=== PATIENT | male | born 1965 | race African-American/Black ===

== ENCOUNTER → 2016-09-17 | Outpatient (CLI) | payer MEDICARE, MEDICAID ==
[~2016-09-17] MED LIST: ALL300T PO; BUPR5DIS TOP; CEPH500T PO; FLUT250M9 IH; HYDR25TA4 PO; LEVE100012 PO; LORA-205 PO; NITR0.4S31 SL; PLAVIX PO; POTA12PO2 PO; VERA240C2 PO
== END | disposition home or self-care (01) ==
LOC: Rad HDHVI 14:05
PROVIDERS: ATTEND Internal Medicine Cardiovascular Disease
DX: I11.0 Hypertensive heart disease with heart failure (principal); I50.9 Heart failure, unspecified; I25.10 Atherosclerotic heart disease of native coronary artery without angina pectoris
CPT/HCPCS: 71020

== ENCOUNTER → 2016-09-29 | Outpatient (CLI) | payer MEDICARE, MEDICAID ==
[~2016-09-29] MED LIST changes: +CYANOCOBALAMIN (B-12) 1000 MCG/1 ML VIAL IM ONE
[2016-09-29 10:50] VITALS: BP 131/89
[2016-09-29 12:06] VITALS: BP 124/84
[2016-09-29 16:29] LABS: Basophils # (auto) 0.1 uL; Basophils % (auto) 1.3 % (0.0-2.0); DEFINITIVE VIEW TRANSMISSION; Eosinophils # (auto) 0.2 uL; Eosinophils % (auto) 1.9 % (0.0-7.0); Hematocrit 48.9 % (41.0-53.0); Hemoglobin 14.1 g/dL (13.5-17.5); Lymphocytes # (auto) 3.2 uL; Lymphocytes % (auto) 37.9 % (10.0-50.0); Mean Corpuscular Hemoglobin 17.7 pg (28.0-32.0); Mean Corpuscular Hgb Conc. 28.9 g/dL (32.0-36.0); Mean Platelet Volume 9.2 fL (7.4-10.4); Monocytes % (auto) 11.3 % (0.0-12.0); Neutrophils # (auto) 4.1 uL; Neutrophils % (auto) 47.6 % (37.0-80.0); Platelet Count (auto) 339 10^3/uL (140-450); SUSPECT VIEW TRANSMISSION; White Blood Cell 8.6 10^3/uL (4.4-10.8)
[2016-09-29 16:55] LABS: Albumin 3.5 g/dL (3.4-5.0); BUN/Creatinine Ratio 19.1; Calcium 8.6 mg/dL (8.5-10.1); Potassium 3.5 mmol/L (3.5-5.1)
[2016-09-29 16:58] LABS: Bilirubin, Total 0.5 mg/dL (0.2-1.0); Total Protein 7.3 g/dL (6.4-8.2)
[2016-09-29 18:06] LABS: Red Cell Distribution Width 31.3 % (11.6-16.0)
[2016-09-29 18:31] LABS: Anisocytosis Marked; Giant Platelets Few; Hypochromia Marked; Microcytosis Marked; Platelet Estimate Adequate
== END | disposition home or self-care (01) ==
LOC: CHF HDHVI 10:54
PROVIDERS: ATTEND Internal Medicine Cardiovascular Disease
DX: I10 Essential (primary) hypertension (principal); D64.9 Anemia, unspecified
CPT/HCPCS: 36415; 80053; 82962; 83540; 83550; 85025; 85049; 96372; G0463

== ENCOUNTER → 2016-11-16 | Outpatient (CLI) | payer MEDICARE, MEDICAID ==
[~2016-11-16] MED LIST changes: +ALIR1INJ3 SC; +ASPI-231 PO; -CYANOCOBALAMIN (B-12) 1000 MCG/1 ML VIAL IM ONE; +DAPA1TAB2 PO
[2016-11-16 09:00] VITALS: BP 126/91
[2016-11-16 09:35] VITALS: BP 124/88
[2016-11-16 12:12] LABS: Basophils # (auto) 0.1 uL; Basophils % (auto) 0.7 % (0.0-2.0); DEFINITIVE VIEW TRANSMISSION; Eosinophils # (auto) 0.2 uL; Eosinophils % (auto) 2.1 % (0.0-7.0); Hematocrit 42.1 % (41.0-53.0); Hemoglobin 12.7 g/dL (13.5-17.5); Lymphocytes # (auto) 2.9 uL; Lymphocytes % (auto) 34.2 % (10.0-50.0); Mean Corpuscular Hemoglobin 18.3 pg (28.0-32.0); Mean Corpuscular Hgb Conc. 30.2 g/dL (32.0-36.0); Mean Corpuscular Volume 60.5 fL (80.0-100.0); Mean Platelet Volume 10.3 fL (7.4-10.4); Monocytes # (auto) 0.8 uL; Monocytes % (auto) 9.1 % (0.0-12.0); Neutrophils # (auto) 4.5 uL; Neutrophils % (auto) 53.9 % (37.0-80.0); Platelet Count (auto) 338 10^3/uL (140-450); SUSPECT VIEW TRANSMISSION; White Blood Cell 8.4 10^3/uL (4.4-10.8)
[2016-11-16 12:35] LABS: Red Cell Distribution Width 24.9 % (11.6-16.0)
[2016-11-16 12:58] LABS: INR 1.04 (0.9-1.15); Partial Thromboplastin Time 25.2 sec (22.64-33.71); Prothrombin Time 10.7 sec (9.37-12.3)
[2016-11-16 13:25] LABS: Platelet Estimate Adequate
[2016-11-16 13:26] LABS: Anisocytosis Marked; Hypochromia Marked; Microcytosis Marked
[2016-11-16 13:46] LABS: BUN/Creatinine Ratio 11.7; Calcium 8.6 mg/dL (8.5-10.1); Potassium 3.5 mmol/L (3.5-5.1)
== END | disposition home or self-care (01) ==
LOC: Rad HDHVI 08:51
PROVIDERS: ATTEND Internal Medicine Cardiovascular Disease
DX: I10 Essential (primary) hypertension (principal); D64.9 Anemia, unspecified; R79.1 Abnormal coagulation profile
CPT/HCPCS: 36415; 71020; 80048; 85025; 85610; 85730; 93005; G0463

== ENCOUNTER → 2016-11-18 | Day surgery (SDC) | payer MEDICARE, MEDICAID ==
[~2016-11-18] VITALS: Ht 182.9 cm; Wt 109.8 kg
[~2016-11-18] MED LIST changes: +LIDOCAINE 2%HCL (LOCAL ANESTH.) INJ 20ML MDV ONE; +MIDAZOLAM HCL 1MG/1ML-2 ML VIAL ONE; +VANCOMYCIN 1GM/250ML D5W 0 ML IV ONE; +VANCOMYCIN 1GM/250ML D5W 250 ML IV ONE; +VANCOMYCIN HCL 1000 MG VL IR ONE; +VANCOMYCIN HCL 1000 MG VL ONE; +ceFAZolin 1GM/50ML D5W 50 ML IV ONE; +fentaNYL CITRATE 100 MCG/2 ML VL ONE
== END | disposition home or self-care (01) ==
LOC: CATH 08:04
PROVIDERS: ATTEND Internal Medicine Cardiovascular Disease
DX: Z45.018 Encounter for adjustment and management of other part of cardiac pacemaker (principal); I20.9 Angina pectoris, unspecified; I50.9 Heart failure, unspecified; J44.9 Chronic obstructive pulmonary disease, unspecified; F41.9 Anxiety disorder, unspecified; F32.9 Major depressive disorder, single episode, unspecified; F10.99 Alcohol use, unspecified with unspecified alcohol-induced disorder; B19.10 Unspecified viral hepatitis B without hepatic coma
CPT/HCPCS: 33220; J0690; J2250; J3010; J7030

== ENCOUNTER → 2017-01-17 | Outpatient (CLI) | payer MEDICARE, MEDICAID ==
[~2017-01-17] MED LIST changes: +CYANOCOBALAMIN (B-12) 1000 MCG/1 ML VIAL IM ONE; +CYANOCOBALAMIN (B-12) 1000 MCG/1 ML VIAL ONE; -LIDOCAINE 2%HCL (LOCAL ANESTH.) INJ 20ML MDV ONE; -MIDAZOLAM HCL 1MG/1ML-2 ML VIAL ONE; -VANCOMYCIN 1GM/250ML D5W 0 ML IV ONE; -VANCOMYCIN 1GM/250ML D5W 250 ML IV ONE; -VANCOMYCIN HCL 1000 MG VL IR ONE; -VANCOMYCIN HCL 1000 MG VL ONE; -ceFAZolin 1GM/50ML D5W 50 ML IV ONE; -fentaNYL CITRATE 100 MCG/2 ML VL ONE
[2017-01-17 11:00] VITALS: BP 118/84
[2017-01-17 12:45] LABS: Basophils # (auto) 0.1 uL; Basophils % (auto) 0.5 % (0.0-2.0); DEFINITIVE VIEW TRANSMISSION; Eosinophils # (auto) 0.3 uL; Eosinophils % (auto) 2.9 % (0.0-7.0); Hematocrit 42.9 % (41.0-53.0); Lymphocytes % (auto) 29.8 % (10.0-50.0); Mean Corpuscular Hemoglobin 17.6 pg (28.0-32.0); Mean Corpuscular Hgb Conc. 30.3 g/dL (32.0-36.0); Mean Corpuscular Volume 58.3 fL (80.0-100.0); Mean Platelet Volume 10.2 fL (7.4-10.4); Monocytes # (auto) 0.9 uL; Monocytes % (auto) 8.8 % (0.0-12.0); Neutrophils # (auto) 5.9 uL; Platelet Count (auto) 373 10^3/uL (140-450); Red Cell Distribution Width 21.7 % (11.6-16.0); SUSPECT VIEW TRANSMISSION; White Blood Cell 10.1 10^3/uL (4.4-10.8)
[2017-01-17 13:20] LABS: BUN/Creatinine Ratio 11.4; Calcium 8.8 mg/dL (8.5-10.1); Magnesium 2.6 mg/dL (1.6-2.6); Potassium 3.7 mmol/L (3.5-5.1); Uric Acid 6.3 mg/dL (3.5-7.2)
== END | disposition home or self-care (01) ==
LOC: CHF HDHVI 09:50
PROVIDERS: ATTEND Internal Medicine Cardiovascular Disease
DX: I10 Essential (primary) hypertension (principal); E11.9 Type 2 diabetes mellitus without complications; E83.42 Hypomagnesemia; E55.9 Vitamin D deficiency, unspecified; D64.9 Anemia, unspecified; M10.9 Gout, unspecified
CPT/HCPCS: 36415; 80048; 82306; 83036; 83735; 84550; 85025; 94620; 96372; G0463

== ENCOUNTER → 2017-02-15 | Outpatient (CLI) | payer MEDICARE, MEDICAID ==
[2017-02-15 12:28] LABS: Basophils # (auto) 0 uL; Basophils % (auto) 0.5 % (0.0-2.0); DEFINITIVE VIEW TRANSMISSION; Eosinophils # (auto) 0.2 uL; Eosinophils % (auto) 2.3 % (0.0-7.0); Hematocrit 43.8 % (41.0-53.0); Hemoglobin 13.1 g/dL (13.5-17.5); Lymphocytes # (auto) 3.2 uL; Lymphocytes % (auto) 33.3 % (10.0-50.0); Mean Corpuscular Hemoglobin 17.4 pg (28.0-32.0); Mean Corpuscular Volume 58.1 fL (80.0-100.0); Mean Platelet Volume 10.3 fL (7.4-10.4); Monocytes # (auto) 0.9 uL; Neutrophils # (auto) 5.3 uL; Neutrophils % (auto) 54.9 % (37.0-80.0); Platelet Count (auto) 372 10^3/uL (140-450); White Blood Cell 9.7 10^3/uL (4.4-10.8)
[2017-02-15 13:07] LABS: Red Cell Distribution Width 23.1 % (11.6-16.0)
[2017-02-15 13:12] LABS: Potassium 3.6 mmol/L (3.5-5.1)
[2017-02-15 13:13] LABS: BUN/Creatinine Ratio 10.1; Calcium 8.7 mg/dL (8.5-10.1)
[2017-02-15 13:52] LABS: Platelet Estimate Adequate
[2017-02-15 13:56] LABS: Anisocytosis Moderate; Hypochromia Marked
[2017-02-15 13:57] LABS: Microcytosis Moderate
== END | disposition home or self-care (01) ==
LOC: Rad HDHVI 08:54
PROVIDERS: ATTEND Internal Medicine Cardiovascular Disease
DX: I10 Essential (primary) hypertension (principal); D64.9 Anemia, unspecified; D75.1 Secondary polycythemia
CPT/HCPCS: 36415; 80048; 83540; 83550; 85025; 93701; 96372; G0463

== ENCOUNTER → 2017-02-24 | Outpatient (CLI) | payer MEDICARE, MEDICAID ==
[~2017-02-24] MED LIST changes: -CYANOCOBALAMIN (B-12) 1000 MCG/1 ML VIAL IM ONE; -CYANOCOBALAMIN (B-12) 1000 MCG/1 ML VIAL ONE; +KETOROLAC TROMETH 60MG/2ML VIAL IM ONE
[2017-02-24 11:40] VITALS: BP 137/97
[2017-02-24 12:20] VITALS: BP 114/95
== END | disposition home or self-care (01) ==
LOC: CHF HDHVI 11:40
PROVIDERS: ATTEND Internal Medicine Cardiovascular Disease
DX: I27.2 Other secondary pulmonary hypertension (principal); D64.9 Anemia, unspecified; R52 Pain, unspecified
CPT/HCPCS: 96372; G0463; J1885

== ENCOUNTER → 2017-03-17 | Outpatient (CLI) | payer MEDICARE, MEDICAID ==
[~2017-03-17] MED LIST changes: +CYANOCOBALAMIN (B-12) 1000 MCG/1 ML VIAL IM ONE; +CYANOCOBALAMIN (B-12) 1000 MCG/1 ML VIAL ONE; -KETOROLAC TROMETH 60MG/2ML VIAL IM ONE
[2017-03-17 08:30] VITALS: BP 142/90
[2017-03-17 08:56] VITALS: BP 127/79
== END | disposition home or self-care (01) ==
LOC: CHF HDHVI 08:29
PROVIDERS: ATTEND Internal Medicine Cardiovascular Disease
DX: I50.9 Heart failure, unspecified (principal); I10 Essential (primary) hypertension; G45.9 Transient cerebral ischemic attack, unspecified; D45 Polycythemia vera; R07.9 Chest pain, unspecified; R53.83 Other fatigue
CPT/HCPCS: 93701; 96372; G0463; J3420

== ENCOUNTER → 2017-03-31 | Outpatient (CLI) | payer MEDICARE, MEDICAID ==
[~2017-03-31] MED LIST changes: +KETOROLAC TROMETH 30 MG/ML 1ML VIAL IM ONE; +KETOROLAC TROMETH 60MG/2ML VIAL IM ONE
[2017-03-31 13:45] VITALS: BP 111/92
[2017-03-31 16:44] LABS: BUN/Creatinine Ratio 14.8; Calcium 8.1 mg/dL (8.5-10.1); Potassium 3.3 mmol/L (3.5-5.1)
[2017-03-31 16:55] LABS: Basophils # (auto) 0.1 uL; Basophils % (auto) 0.6 % (0.0-2.0); CONDITION Y; DEFINITIVE SEE PRINTOUT; Eosinophils # (auto) 0.1 uL; Eosinophils % (auto) 1.5 % (0.0-7.0); Hematocrit 40.5 % (41.0-53.0); Hemoglobin 12.5 g/dL (13.5-17.5); Lymphocytes # (auto) 3.4 uL; Lymphocytes % (auto) 34.5 % (10.0-50.0); Mean Corpuscular Hemoglobin 17.5 pg (28.0-32.0); Mean Corpuscular Hgb Conc. 30.8 g/dL (32.0-36.0); Mean Corpuscular Volume 56.9 fL (80.0-100.0); Mean Platelet Volume 10.5 fL (7.4-10.4); Monocytes # (auto) 0.5 uL; Monocytes % (auto) 5.4 % (0.0-12.0); Neutrophils # (auto) 5.7 uL; Platelet Count (auto) 358 10^3/uL (140-450); SUSPECT SEE PRINTOUT; White Blood Cell 9.8 10^3/uL (4.4-10.8)
[2017-03-31 16:57] LABS: Red Cell Distribution Width 21.4 % (11.6-16.0)
[2017-03-31 17:00] LABS: Anisocytosis Moderate; Burr Cells FEW; Giant Platelets Few; Hypochromia Moderate; Microcytosis Moderate; Ovalocytes FEW; Platelet Estimate Adequate; Tear Drop Cells FEW
== END | disposition home or self-care (01) ==
LOC: CHF HDHVI 12:57
PROVIDERS: ATTEND Internal Medicine Cardiovascular Disease
DX: I10 Essential (primary) hypertension (principal); D64.9 Anemia, unspecified
CPT/HCPCS: 36415; 80048; 85025; 96372; G0463; J1885; J3420

== ENCOUNTER → 2017-05-31 | Outpatient (CLI) | payer MEDICARE, MEDICAID ==
[~2017-05-31] VITALS: Ht 30.5 cm; Wt 0.5 kg
[~2017-05-31] MED LIST changes: -CYANOCOBALAMIN (B-12) 1000 MCG/1 ML VIAL IM ONE; -CYANOCOBALAMIN (B-12) 1000 MCG/1 ML VIAL ONE; -KETOROLAC TROMETH 30 MG/ML 1ML VIAL IM ONE; -KETOROLAC TROMETH 60MG/2ML VIAL IM ONE; +SODIUM CHL 3% 500 ML IV ONE
[2017-05-31 09:20] VITALS: BP 116/80
[2017-05-31 10:05] VITALS: BP 111/89
[2017-05-31 12:18] LABS: Basophils # (auto) 0.1 uL; Eosinophils # (auto) 0.1 uL; Eosinophils % (auto) 1.5 % (0.0-7.0); Hematocrit 37.8 % (41.0-53.0); Hemoglobin 11.6 g/dL (13.5-17.5); Lymphocytes # (auto) 2.9 uL; Lymphocytes % (auto) 39.1 % (10.0-50.0); Mean Corpuscular Hemoglobin 16.8 pg (28.0-32.0); Mean Corpuscular Hgb Conc. 30.7 g/dL (32.0-36.0); Mean Corpuscular Volume 54.7 fL (80.0-100.0); Mean Platelet Volume 8.7 fL (6.9-10.8); Monocytes # (auto) 0.9 uL; Monocytes % (auto) 11.5 % (0.0-12.0); Neutrophils # (auto) 3.5 uL; Neutrophils % (auto) 46.9 % (37.0-80.0); Nucleated Red Blood Cells % 0.2 %; Platelet Count (auto) 280 10^3/uL (140-450); White Blood Cell 7.5 10^3/uL (4.4-10.8)
[2017-05-31 12:43] LABS: Albumin 3.5 g/dL (3.4-5.0); BUN/Creatinine Ratio 14.4; Bilirubin, Total 0.6 mg/dL (0.2-1.0); Calcium 8.5 mg/dL (8.5-10.1); Magnesium 2.9 mg/dL (1.6-2.6); Total Protein 7.2 g/dL (6.4-8.2)
[2017-05-31 12:49] LABS: Red Cell Distribution Width 20.8 % (11.8-14.3)
[2017-05-31 13:28] LABS: Anisocytosis Moderate; Burr Cells FEW; Hypochromia Marked; Microcytosis Marked; Platelet Estimate Adequate
[2017-05-31 13:29] LABS: Poikilocytosis Moderate
== END | disposition home or self-care (01) ==
LOC: CHF HDHVI 09:20
PROVIDERS: ATTEND Internal Medicine Cardiovascular Disease
DX: I10 Essential (primary) hypertension (principal); E11.9 Type 2 diabetes mellitus without complications; E83.42 Hypomagnesemia; D64.9 Anemia, unspecified
CPT/HCPCS: 36415; 80053; 83036; 83735; 85025; 93701; G0463

== ENCOUNTER → 2017-07-11 | Outpatient (CLI) | payer MEDICARE, MEDICAID ==
[~2017-07-11] MED LIST changes: +CYANOCOBALAMIN (B-12) 1000 MCG/1 ML VIAL IM ONE; +CYANOCOBALAMIN (B-12) 1000 MCG/1 ML VIAL ONE; -SODIUM CHL 3% 500 ML IV ONE
[2017-07-11 14:10] VITALS: BP 129/90
[2017-07-11 16:56] LABS: BUN/Creatinine Ratio 15.7; Calcium 8.4 mg/dL (8.5-10.1); Magnesium 2.9 mg/dL (1.6-2.6); Potassium 3.3 mmol/L (3.5-5.1)
[2017-07-11 17:32] LABS: Basophils # (auto) 0.1 uL; Eosinophils # (auto) 0.2 uL; Mean Corpuscular Hemoglobin 16.2 pg (28.0-32.0); Monocytes # (auto) 1.1 uL; Neutrophils # (auto) 4.3 uL; Nucleated Red Blood Cells % 0.1 %
[2017-07-11 17:33] LABS: Basophils % (auto) 0.7 % (0.0-2.0); Eosinophils % (auto) 2.7 % (0.0-7.0); Hematocrit 37.2 % (41.0-53.0); Lymphocytes # (auto) 3.6 uL; Lymphocytes % (auto) 38.5 % (10.0-50.0); Mean Corpuscular Hgb Conc. 29.5 g/dL (32.0-36.0); Mean Corpuscular Volume 54.8 fL (80.0-100.0); Mean Platelet Volume 8.6 fL (6.9-10.8); Monocytes % (auto) 11.7 % (0.0-12.0); Neutrophils % (auto) 46.4 % (37.0-80.0); Platelet Count (auto) 356 10^3/uL (140-450); White Blood Cell 9.3 10^3/uL (4.4-10.8)
[2017-07-11 17:37] LABS: Red Cell Distribution Width 22.1 % (11.8-14.3)
[2017-07-11 22:36] LABS: Anisocytosis Moderate; Burr Cells FEW; Hypochromia Marked; Microcytosis Marked; Ovalocytes FEW; Platelet Estimate Adequate; Schistocytes FEW
== END | disposition home or self-care (01) ==
LOC: CHF HDHVI 13:24
PROVIDERS: ATTEND Internal Medicine Cardiovascular Disease
DX: I10 Essential (primary) hypertension (principal); E83.42 Hypomagnesemia; D64.9 Anemia, unspecified; E11.9 Type 2 diabetes mellitus without complications; D75.1 Secondary polycythemia; G40.909 Epilepsy, unspecified, not intractable, without status epilepticus; I25.10 Atherosclerotic heart disease of native coronary artery without angina pectoris
CPT/HCPCS: 36415; 80048; 83735; 85025; 93701; 96372; G0463; J3420

== ENCOUNTER → 2017-09-07 | Outpatient (CLI) | payer MEDICARE, MEDICAID ==
[~2017-09-07] VITALS: Ht 30.5 cm; Wt 0.5 kg
[~2017-09-07] MED LIST changes: -DAPA1TAB2 PO; +DAPA1TAB4 PO
[2017-09-07 08:05] VITALS: BP 122/91
[2017-09-07 10:50] VITALS: BP 131/94
[2017-09-07 12:02] LABS: Albumin 3.2 g/dL (3.4-5.0); BUN/Creatinine Ratio 11.2; Bilirubin, Total 0.3 mg/dL (0.2-1.0); Potassium 3.3 mmol/L (3.5-5.1); Total Protein 6.9 g/dL (6.4-8.2)
[2017-09-07 12:12] LABS: Eosinophils # (auto) 0.3 uL; Neutrophils # (auto) 4.7 uL
[2017-09-07 12:14] LABS: Basophils # (auto) 0.1 uL; Basophils % (auto) 0.9 % (0.0-2.0); Eosinophils % (auto) 3.6 % (0.0-7.0); Hematocrit 39.7 % (41.0-53.0); Hemoglobin 11.2 g/dL (13.5-17.5); Lymphocytes # (auto) 3.2 uL; Lymphocytes % (auto) 34.1 % (10.0-50.0); Mean Corpuscular Hemoglobin 14.9 pg (28.0-32.0); Mean Corpuscular Hgb Conc. 28.2 g/dL (32.0-36.0); Mean Corpuscular Volume 52.7 fL (80.0-100.0); Monocytes % (auto) 11.2 % (0.0-12.0); Neutrophils % (auto) 50.2 % (37.0-80.0); Nucleated Red Blood Cells % 0.5 %; Platelet Count (auto) 292 10^3/uL (140-450); White Blood Cell 9.3 10^3/uL (4.4-10.8)
[2017-09-07 12:17] LABS: Red Cell Distribution Width 22.3 % (11.8-14.3)
[2017-09-07 14:36] LABS: Platelet Estimate Adequate
[2017-09-07 14:39] LABS: Burr Cells FEW; Ovalocytes FEW; Tear Drop Cells FEW
[2017-09-07 14:44] LABS: Schistocytes FEW
[2017-09-07 14:45] LABS: Platelet Clumps FEW
[2017-09-07 14:46] LABS: Anisocytosis Moderate; Hypochromia Marked; Microcytosis Marked
[2017-09-07 14:47] LABS: Polychromasia Slight
== END | disposition home or self-care (01) ==
LOC: CHF HDHVI 08:13
PROVIDERS: ATTEND Internal Medicine Cardiovascular Disease
DX: K44.9 Diaphragmatic hernia without obstruction or gangrene (principal); G45.9 Transient cerebral ischemic attack, unspecified; I10 Essential (primary) hypertension; D64.9 Anemia, unspecified; R74.8 Abnormal levels of other serum enzymes; E11.9 Type 2 diabetes mellitus without complications; E55.9 Vitamin D deficiency, unspecified; R59.1 Generalized enlarged lymph nodes; R06.02 Shortness of breath; R53.83 Other fatigue
CPT/HCPCS: 36415; 80053; 82150; 82306; 83036; 83690; 85025; 93701; 94620; 96372; G0463; J3420; 74176

== ENCOUNTER → 2017-11-14 | Outpatient (CLI) | payer MEDICARE, MEDICAID ==
[2017-11-14 08:10] VITALS: BP 114/89
[2017-11-14 09:20] VITALS: BP 103/67
[2017-11-14 12:23] LABS: Basophils # (auto) 0.1 uL; Eosinophils # (auto) 0.1 uL; Eosinophils % (auto) 1.6 % (0.0-7.0); Nucleated Red Blood Cells % 0.1 %
[2017-11-14 12:27] LABS: Basophils % (auto) 1.3 % (0.0-2.0); Hematocrit 44.5 % (41.0-53.0); Hemoglobin 12.6 g/dL (13.5-17.5); Lymphocytes # (auto) 2.6 uL; Lymphocytes % (auto) 35.3 % (10.0-50.0); Mean Corpuscular Hgb Conc. 28.4 g/dL (32.0-36.0); Mean Corpuscular Volume 52.9 fL (80.0-100.0); Monocytes # (auto) 0.9 uL; Monocytes % (auto) 11.6 % (0.0-12.0); Neutrophils # (auto) 3.7 uL; Neutrophils % (auto) 50.2 % (37.0-80.0); Platelet Count (auto) 314 10^3/uL (140-450); Red Blood Cells 8.41 10^6/uL (4.5-5.90); White Blood Cell 7.5 10^3/uL (4.4-10.8)
[2017-11-14 12:35] LABS: Red Cell Distribution Width 23.8 % (11.8-14.3)
[2017-11-14 12:39] LABS: BUN/Creatinine Ratio 11.6; Calcium 8.9 mg/dL (8.5-10.1); Magnesium 2.9 mg/dL (1.6-2.6); Potassium 3.2 mmol/L (3.5-5.1)
== END | disposition home or self-care (01) ==
LOC: CHF HDHVI 08:17
PROVIDERS: ATTEND Internal Medicine Cardiovascular Disease
DX: E83.40 Disorders of magnesium metabolism, unspecified (principal); I10 Essential (primary) hypertension; D64.9 Anemia, unspecified; G45.9 Transient cerebral ischemic attack, unspecified; N28.9 Disorder of kidney and ureter, unspecified; R19.00 Intra-abdominal and pelvic swelling, mass and lump, unspecified site; I25.10 Atherosclerotic heart disease of native coronary artery without angina pectoris; R06.02 Shortness of breath
CPT/HCPCS: 36415; 80048; 83735; 85025; 93701; 94618; 96372; G0463; J3420

== ENCOUNTER → 2017-11-16 | Outpatient (CLI) | payer MEDICARE, MEDICAID ==
[~2017-11-16] MED LIST changes: -CYANOCOBALAMIN (B-12) 1000 MCG/1 ML VIAL IM ONE; -CYANOCOBALAMIN (B-12) 1000 MCG/1 ML VIAL ONE; +GASTROGRAFIN 120 ML SOL ONE; +IOHEXOL 350 MG/ML 100ML IJ ONE; +ONDANSETRON HCL 4 MG/2 ML VIAL IV ONE; +ONDANSETRON HCL 4 MG/2 ML VIAL ONE
[2017-11-16 10:50] VITALS: BP 140/74
[2017-11-16 12:33] VITALS: BP 115/89
[2017-11-16 16:30] LABS: Hemoglobin 12.7 g/dL (13.5-17.5); Monocytes # (auto) 0.6 uL; Nucleated Red Blood Cells % 0.1 %
[2017-11-16 16:32] LABS: Basophils # (auto) 0 uL; Basophils % (auto) 0.3 % (0.0-2.0); Eosinophils # (auto) 0 uL; Eosinophils % (auto) 0.3 % (0.0-7.0); Hematocrit 45.4 % (41.0-53.0); Lymphocytes % (auto) 9.5 % (10.0-50.0); Mean Corpuscular Hgb Conc. 27.9 g/dL (32.0-36.0); Mean Corpuscular Volume 53.7 fL (80.0-100.0); Monocytes % (auto) 5.6 % (0.0-12.0); Neutrophils # (auto) 8.5 uL; Neutrophils % (auto) 84.3 % (37.0-80.0); Platelet Count (auto) 309 10^3/uL (140-450); Red Blood Cells 8.47 10^6/uL (4.5-5.90); White Blood Cell 10.1 10^3/uL (4.4-10.8)
[2017-11-16 16:35] LABS: Red Cell Distribution Width 23.6 % (11.8-14.3)
== END | disposition home or self-care (01) ==
LOC: CHF HDHVI 10:36
PROVIDERS: ATTEND Internal Medicine Cardiovascular Disease
DX: K92.2 Gastrointestinal hemorrhage, unspecified (principal); D64.9 Anemia, unspecified; I50.9 Heart failure, unspecified; I25.10 Atherosclerotic heart disease of native coronary artery without angina pectoris
CPT/HCPCS: 36415; 74177; 82565; 85025; 96374; 96375; G0463; J2405; Q9963; Q9967

== ENCOUNTER → 2017-11-18 | Outpatient (CLI) | payer MEDICARE, MEDICAID ==
[~2017-11-18] MED LIST changes: -GASTROGRAFIN 120 ML SOL ONE; -IOHEXOL 350 MG/ML 100ML IJ ONE; -ONDANSETRON HCL 4 MG/2 ML VIAL IV ONE; -ONDANSETRON HCL 4 MG/2 ML VIAL ONE; +PROMETHAZINE HCL 25 MG/ML 1ML IV ONE; +PROMETHAZINE HCL 25 MG/ML 1ML ONE
[2017-11-18 09:50] VITALS: BP 112/93
[2017-11-18 10:30] VITALS: BP 113/89
[2017-11-18 12:05] LABS: Basophils # (auto) 0 uL; Basophils % (auto) 0.5 % (0.0-2.0); Eosinophils # (auto) 0.1 uL; Eosinophils % (auto) 1.6 % (0.0-7.0); Hematocrit 44.9 % (41.0-53.0); Hemoglobin 12.7 g/dL (13.5-17.5); Lymphocytes # (auto) 2.7 uL; Lymphocytes % (auto) 35.5 % (10.0-50.0); Mean Corpuscular Hgb Conc. 28.3 g/dL (32.0-36.0); Mean Corpuscular Volume 53.2 fL (80.0-100.0); Monocytes # (auto) 1.2 uL; Monocytes % (auto) 15.8 % (0.0-12.0); Neutrophils # (auto) 3.5 uL; Neutrophils % (auto) 46.6 % (37.0-80.0); Nucleated Red Blood Cells % 0.2 %; Platelet Count (auto) 297 10^3/uL (140-450); Red Blood Cells 8.44 10^6/uL (4.5-5.90); White Blood Cell 7.6 10^3/uL (4.4-10.8)
[2017-11-18 12:06] LABS: Red Cell Distribution Width 24.7 % (11.8-14.3)
[2017-11-18 12:16] LABS: Potassium 3.1 mmol/L (3.5-5.1)
== END | disposition home or self-care (01) ==
LOC: CHF HDHVI 09:56
PROVIDERS: ATTEND Internal Medicine Cardiovascular Disease
DX: E87.6 Hypokalemia (principal); D64.9 Anemia, unspecified; G40.89 Other seizures; I27.21 Secondary pulmonary arterial hypertension; I10 Essential (primary) hypertension; R11.0 Nausea; R94.4 Abnormal results of kidney function studies; Z86.73 Personal history of transient ischemic attack (TIA), and cerebral infarction without residual deficits
CPT/HCPCS: 36415; 82565; 84132; 84520; 85025; 96374; G0463; J2550

== ENCOUNTER → 2017-12-07 | Outpatient (CLI) | payer MEDICARE, MEDICAID ==
[~2017-12-07] MED LIST changes: -PROMETHAZINE HCL 25 MG/ML 1ML IV ONE; -PROMETHAZINE HCL 25 MG/ML 1ML ONE
== END | disposition home or self-care (01) ==
LOC: Rad HDHVI 09:07
PROVIDERS: ATTEND Internal Medicine Cardiovascular Disease
DX: I47.1 Supraventricular tachycardia (principal); I48.0 Paroxysmal atrial fibrillation; I10 Essential (primary) hypertension; E11.9 Type 2 diabetes mellitus without complications
CPT/HCPCS: 93306

== ENCOUNTER → 2018-01-17 | Outpatient (CLI) | payer MEDICARE, MEDICAID ==
[~2018-01-17] MED LIST changes: +CYANOCOBALAMIN (B-12) 1000 MCG/1 ML VIAL IM ONE; +CYANOCOBALAMIN (B-12) 1000 MCG/1 ML VIAL ONE; +KETOROLAC TROMETH 60MG/2ML VIAL IM ONE
[2018-01-17 14:50] VITALS: BP 138/77
[2018-01-17 15:25] VITALS: BP 138/85
== END | disposition home or self-care (01) ==
LOC: CHF HDHVI 14:36
PROVIDERS: ATTEND Internal Medicine Cardiovascular Disease
DX: R53.83 Other fatigue (principal); I13.0 Hypertensive heart and chronic kidney disease with heart failure and stage 1 through stage 4 chronic kidney disease, or unspecified chronic kidney disease; I50.9 Heart failure, unspecified; N18.9 Chronic kidney disease, unspecified; I25.10 Atherosclerotic heart disease of native coronary artery without angina pectoris; I48.0 Paroxysmal atrial fibrillation; E78.5 Hyperlipidemia, unspecified; E11.22 Type 2 diabetes mellitus with diabetic chronic kidney disease; Z94.1 Heart transplant status; Z95.810 Presence of automatic (implantable) cardiac defibrillator
CPT/HCPCS: 96372; G0463; J1885; J3420

== ENCOUNTER 2018-01-30 13:49 | Emergency (ER) | payer MEDICARE, MEDICAID ==
[~2018-01-30] VITALS: Ht 182.9 cm; Wt 101.2 kg
[~2018-01-30 13:49] MED LIST changes: -CYANOCOBALAMIN (B-12) 1000 MCG/1 ML VIAL IM ONE; -CYANOCOBALAMIN (B-12) 1000 MCG/1 ML VIAL ONE; -KETOROLAC TROMETH 60MG/2ML VIAL IM ONE
[2018-01-30 16:00] VITALS: BP 121/103
[2018-01-30] MEDS ORDERED: PNEUMOCOCCAL VACC POLYS 25 MCG/0.5 ML VIAL IM ONE (16:30)
== END 2018-01-30 16:48 | disposition home or self-care (01) ==
LOC: ER 13:52
DX: J02.9 Acute pharyngitis, unspecified (principal); I48.91 Unspecified atrial fibrillation; I25.10 Atherosclerotic heart disease of native coronary artery without angina pectoris; I13.0 Hypertensive heart and chronic kidney disease with heart failure and stage 1 through stage 4 chronic kidney disease, or unspecified chronic kidney disease; I50.9 Heart failure, unspecified; N18.9 Chronic kidney disease, unspecified; J44.9 Chronic obstructive pulmonary disease, unspecified; E78.5 Hyperlipidemia, unspecified; Z95.0 Presence of cardiac pacemaker; Z23 Encounter for immunization
CPT/HCPCS: 71046; 90471; 90732; 99284; G0009; 96372

== ENCOUNTER → 2018-02-13 | Outpatient (CLI) | payer MEDICARE, MEDICAID ==
[~2018-02-13] MED LIST changes: +CYANOCOBALAMIN (B-12) 1000 MCG/1 ML VIAL IM ONE; +CYANOCOBALAMIN (B-12) 1000 MCG/1 ML VIAL ONE
[2018-02-13 12:35] VITALS: BP 138/80
[2018-02-13 16:18] LABS: Albumin 3.1 g/dL (3.4-5.0); Calcium 8.3 mg/dL (8.5-10.1); Potassium 3.3 mmol/L (3.5-5.1)
[2018-02-13 16:20] LABS: BUN/Creatinine Ratio 10.3
[2018-02-13 16:23] LABS: Bilirubin, Total 0.4 mg/dL (0.2-1.0); Total Protein 7.4 g/dL (6.4-8.2)
[2018-02-13 16:51] LABS: Eosinophils # (auto) 0.2 uL; Hemoglobin 12.8 g/dL (13.5-17.5); Neutrophils # (auto) 5.7 uL
[2018-02-13 16:53] LABS: Basophils # (auto) 0.1 uL; Basophils % (auto) 0.7 % (0.0-2.0); Eosinophils % (auto) 2.2 % (0.0-7.0); Hematocrit 41.8 % (41.0-53.0); Lymphocytes % (auto) 30.1 % (10.0-50.0); Mean Corpuscular Hemoglobin 17.1 pg (28.0-32.0); Mean Corpuscular Hgb Conc. 30.6 g/dL (32.0-36.0); Mean Corpuscular Volume 55.8 fL (80.0-100.0); Monocytes # (auto) 0.9 uL; Monocytes % (auto) 8.8 % (0.0-12.0); Neutrophils % (auto) 58.2 % (37.0-80.0); Nucleated Red Blood Cells % 0.3 %; Platelet Count (auto) 403 10^3/uL (140-450); Red Blood Cells 7.49 10^6/uL (4.5-5.90); White Blood Cell 9.9 10^3/uL (4.4-10.8)
[2018-02-13 16:57] LABS: Red Cell Distribution Width 22.7 % (11.8-14.3)
== END | disposition home or self-care (01) ==
LOC: CHF HDHVI 11:31
PROVIDERS: ATTEND Internal Medicine Cardiovascular Disease
DX: D51.9 Vitamin B12 deficiency anemia, unspecified (principal); D64.9 Anemia, unspecified; I25.10 Atherosclerotic heart disease of native coronary artery without angina pectoris; D75.1 Secondary polycythemia; G40.909 Epilepsy, unspecified, not intractable, without status epilepticus; I13.0 Hypertensive heart and chronic kidney disease with heart failure and stage 1 through stage 4 chronic kidney disease, or unspecified chronic kidney disease; N18.9 Chronic kidney disease, unspecified; E78.5 Hyperlipidemia, unspecified; I50.9 Heart failure, unspecified; J44.9 Chronic obstructive pulmonary disease, unspecified; E11.22 Type 2 diabetes mellitus with diabetic chronic kidney disease; I48.0 Paroxysmal atrial fibrillation; Z94.1 Heart transplant status; Z95.810 Presence of automatic (implantable) cardiac defibrillator
CPT/HCPCS: 36415; 80053; 82607; 85025; 93701; 96372; G0463; J3420

== ENCOUNTER → 2018-02-14 | Outpatient (CLI) | payer MEDICARE, MEDICAID ==
[~2018-02-14] MED LIST changes: -CYANOCOBALAMIN (B-12) 1000 MCG/1 ML VIAL IM ONE; -CYANOCOBALAMIN (B-12) 1000 MCG/1 ML VIAL ONE; +KETOROLAC TROMETH 30 MG/ML 1ML VIAL IM ONE; +KETOROLAC TROMETH 60MG/2ML VIAL IM ONE; +POTASSIUM CHL 10 Meq TABLET PO ONE; +POTASSIUM CHL 20 Meq TABLET PO ONE
[2018-02-14 12:00] VITALS: BP 101/84
[2018-02-14 12:30] VITALS: BP 123/77
== END | disposition home or self-care (01) ==
LOC: CHF HDHVI 11:58
PROVIDERS: ATTEND Internal Medicine Cardiovascular Disease
DX: M25.551 Pain in right hip (principal); M25.552 Pain in left hip; G40.909 Epilepsy, unspecified, not intractable, without status epilepticus; D64.9 Anemia, unspecified; I25.10 Atherosclerotic heart disease of native coronary artery without angina pectoris; I13.0 Hypertensive heart and chronic kidney disease with heart failure and stage 1 through stage 4 chronic kidney disease, or unspecified chronic kidney disease; N18.9 Chronic kidney disease, unspecified; I50.9 Heart failure, unspecified; J44.9 Chronic obstructive pulmonary disease, unspecified; E78.5 Hyperlipidemia, unspecified; I48.0 Paroxysmal atrial fibrillation; E11.22 Type 2 diabetes mellitus with diabetic chronic kidney disease; Z95.0 Presence of cardiac pacemaker; Z95.810 Presence of automatic (implantable) cardiac defibrillator
CPT/HCPCS: 96372; G0463; J1885

== ENCOUNTER → 2018-02-28 | Outpatient (CLI) | payer MEDICARE, MEDICAID ==
[~2018-02-28] MED LIST changes: -KETOROLAC TROMETH 30 MG/ML 1ML VIAL IM ONE; -KETOROLAC TROMETH 60MG/2ML VIAL IM ONE; -POTASSIUM CHL 10 Meq TABLET PO ONE; -POTASSIUM CHL 20 Meq TABLET PO ONE
[2018-02-28 13:30] VITALS: BP 108/82
== END | disposition home or self-care (01) ==
LOC: CHF HDHVI 13:39
PROVIDERS: ATTEND Internal Medicine Cardiovascular Disease
DX: L81.9 Disorder of pigmentation, unspecified (principal)
CPT/HCPCS: G0463

== ENCOUNTER → 2018-05-12 | Outpatient (CLI) | payer MEDICARE, MEDICAID ==
[~2018-05-12] MED LIST changes: -ALL300T PO; -BUPR5DIS TOP; +CYANOCOBALAMIN (B-12) 1000 MCG/1 ML VIAL IM ONE; +CYANOCOBALAMIN (B-12) 1000 MCG/1 ML VIAL ONE; +FLUT1INH6 IN; -FLUT250M9 IH; -HYDR25TA4 PO; -LORA-205 PO; +MAGN400T5 PO; -PLAVIX PO; +POTA20TA53 PO; +PREG50CA PO; +RIVA20TA PO; +SOTA80TA PO; +TRIA75TA55 PO
[2018-05-12 08:00] VITALS: BP 127/84
[2018-05-12 09:15] VITALS: BP 113/92
[2018-05-12 12:46] LABS: Eosinophils # (auto) 0.3 uL; Hemoglobin 13.1 g/dL (13.5-17.5); Lymphocytes # (auto) 2.9 uL; Monocytes # (auto) 0.9 uL
[2018-05-12 12:48] LABS: Basophils # (auto) 0 uL; Basophils % (auto) 0.5 % (0.0-2.0); Eosinophils % (auto) 2.9 % (0.0-7.0); Hematocrit 42.9 % (41.0-53.0); Lymphocytes % (auto) 32.9 % (10.0-50.0); Mean Corpuscular Hemoglobin 17.5 pg (28.0-32.0); Mean Corpuscular Hgb Conc. 30.4 g/dL (32.0-36.0); Mean Corpuscular Volume 57.4 fL (80.0-100.0); Neutrophils # (auto) 4.8 uL; Neutrophils % (auto) 53.7 % (37.0-80.0); Nucleated Red Blood Cells % 0.1 %; Platelet Count (auto) 252 10^3/uL (140-450); Red Blood Cells 7.48 10^6/uL (4.5-5.90); White Blood Cell 8.9 10^3/uL (4.4-10.8)
[2018-05-12 12:50] LABS: Red Cell Distribution Width 21.4 % (11.8-14.3)
[2018-05-12 13:03] LABS: Albumin 3.4 g/dL (3.4-5.0); BUN/Creatinine Ratio 12.9; Bilirubin, Total 0.6 mg/dL (0.2-1.0); Calcium 8.2 mg/dL (8.5-10.1); Magnesium 2.8 mg/dL (1.6-2.6); Potassium 3.2 mmol/L (3.5-5.1); Total Protein 7.3 g/dL (6.4-8.2)
== END | disposition home or self-care (01) ==
LOC: CHF HDHVI 08:09
PROVIDERS: ATTEND Internal Medicine Cardiovascular Disease
DX: E83.40 Disorders of magnesium metabolism, unspecified (principal); D64.9 Anemia, unspecified; E55.9 Vitamin D deficiency, unspecified; I10 Essential (primary) hypertension; E11.9 Type 2 diabetes mellitus without complications; I20.0 Unstable angina; J44.9 Chronic obstructive pulmonary disease, unspecified; Z86.73 Personal history of transient ischemic attack (TIA), and cerebral infarction without residual deficits
CPT/HCPCS: 36415; 80053; 82306; 83735; 85025; 93701; 94618; 96372; G0463; J3420

== ENCOUNTER → 2018-05-31 | Outpatient (CLI) | payer MEDICARE, MEDICAID ==
[~2018-05-31] VITALS: Ht 182.9 cm; Wt 108.0 kg
[~2018-05-31] MED LIST changes: +ADENOSINE 90 MG/30 ML INJ IV ONE; +ADENOSINE 91 MG in GIVE UN-DILUTED 0 ML IV ONE; -CYANOCOBALAMIN (B-12) 1000 MCG/1 ML VIAL IM ONE; -CYANOCOBALAMIN (B-12) 1000 MCG/1 ML VIAL ONE
== END | disposition home or self-care (01) ==
LOC: Rad HDHVI 13:54
PROVIDERS: ATTEND Internal Medicine Cardiovascular Disease
DX: I20.0 Unstable angina (principal); I63.9 Cerebral infarction, unspecified; E11.9 Type 2 diabetes mellitus without complications; R56.9 Unspecified convulsions; Z88.6 Allergy status to analgesic agent
CPT/HCPCS: 78452; 93005; 96374; 96375; A9500; J0153

== ENCOUNTER → 2018-07-04 | Outpatient (CLI) | payer MEDICARE, MEDICAID ==
[~2018-07-04] MED LIST changes: -ADENOSINE 90 MG/30 ML INJ IV ONE; -ADENOSINE 91 MG in GIVE UN-DILUTED 0 ML IV ONE
== END | disposition home or self-care (01) ==
LOC: Rad HDHVI 14:06
PROVIDERS: ATTEND Internal Medicine Cardiovascular Disease
DX: I47.2 Ventricular tachycardia (principal); I63.9 Cerebral infarction, unspecified
CPT/HCPCS: 93880

== ENCOUNTER 2018-08-05 13:17 | Emergency (ER) | payer MEDICARE, MEDICAID ==
[~2018-08-05] VITALS: Ht 182.9 cm; Wt 111.1 kg
[2018-08-05] MEDS ORDERED: LEVOFLOXACIN 750MG 150 ML IV ONE (14:00)
[2018-08-05] MEDS ORDERED: ALBUTEROL SULF 2.5 MG/0.5ML(0.5%) NEB SOLN NEB ONE (14:00)
[2018-08-05] MEDS ORDERED: IPRATROPIUM BROM 0.5 MG/2.5ML INH SOL NEB ONE (14:00)
[2018-08-05] MEDS ORDERED: SODIUM CHLORIDE 0.9% 1,000 ML IV ONE (14:00)
[2018-08-05] MEDS ORDERED: methylPREDNISolone SOD SUCC 125 MG/2 ML VL IV ONE (14:00)
[2018-08-05 14:30] LABS: Basophils # (auto) 0.1 uL; Eosinophils # (auto) 0.2 uL; Hemoglobin 13.4 g/dL (13.5-17.5); Lymphocytes # (auto) 3.2 uL; Nucleated Red Blood Cells % 0.1 %; White Blood Cell 10.6 10^3/uL (4.4-10.8)
[2018-08-05 14:32] LABS: Basophils % (auto) 0.7 % (0.0-2.0); Eosinophils % (auto) 1.5 % (0.0-7.0); Lymphocytes % (auto) 30.3 % (10.0-50.0); Mean Corpuscular Hemoglobin 17.1 pg (28.0-32.0); Mean Corpuscular Hgb Conc. 29.8 g/dL (32.0-36.0); Mean Corpuscular Volume 57.4 fL (80.0-100.0); Monocytes # (auto) 1.3 uL; Monocytes % (auto) 12.5 % (0.0-12.0); Neutrophils # (auto) 5.8 uL; Platelet Count (auto) 288 10^3/uL (140-450); Red Blood Cells 7.84 10^6/uL (4.5-5.90)
[2018-08-05 14:37] LABS: Red Cell Distribution Width 21.6 % (11.8-14.3)
[2018-08-05 14:45] LABS: Albumin 3.3 g/dL (3.4-5.0); Anion Gap 7 (5-15); Blood Urea Nitrogen 14 mg/dL (7-18); Calcium 8.2 mg/dL (8.5-10.1); Carbon Dioxide 29 mmol/L (21-32); Chloride 104 mmol/L (98-107); Glucose 73 mg/dL (74-106); Magnesium 2.7 mg/dL (1.6-2.6); Potassium 3.8 mmol/L (3.5-5.1); Sodium 140 mmol/L (136-145)
[2018-08-05 14:47] LABS: Alanine Aminotransferase 25 U/L (16-61); Aspartate Aminotransferase 17 U/L (15-37); GFR African American 61 mL/min; GFR Non-African American 50 mL/min
[2018-08-05 14:52] LABS: Alkaline Phosphatase 118 U/L (45-117); Bilirubin, Total 0.6 mg/dL (0.2-1.0); Total Protein 7.4 g/dL (6.4-8.2)
[2018-08-05 16:30] VITALS: BP 131/98
== END 2018-08-05 16:53 | disposition home or self-care (01) ==
LOC: ER 13:17
DX: J42 Unspecified chronic bronchitis (principal); J44.9 Chronic obstructive pulmonary disease, unspecified; I13.0 Hypertensive heart and chronic kidney disease with heart failure and stage 1 through stage 4 chronic kidney disease, or unspecified chronic kidney disease; N18.9 Chronic kidney disease, unspecified; I50.9 Heart failure, unspecified; E78.5 Hyperlipidemia, unspecified
CPT/HCPCS: 36415; 71045; 80053; 83735; 83880; 84484; 85025; 93005; 94640; 96365; 96366; 96375; 99284; J1956; J2930; J7030; J7611; J7644

== ENCOUNTER → 2018-09-04 | Outpatient (CLI) | payer MEDICARE, MEDICAID ==
[~2018-09-04] VITALS: Ht 30.5 cm; Wt 0.5 kg
[~2018-09-04] MED LIST changes: +CYANOCOBALAMIN (B-12) 1000 MCG/1 ML VIAL IM ONE; +CYANOCOBALAMIN (B-12) 1000 MCG/1 ML VIAL ONE; +KETOROLAC TROMETH 60MG/2ML VIAL IM ONE
[2018-09-04 11:00] VITALS: BP 110/86
--- NOTE | 2018-09-04 11:00 | NUR ---
PT. TO CLINIC WITH WITH C/O LEFT SIDE UNDER RIB CAGE X SEVERAL DAYS, WITH ONLY CHANGE IN MEDS BEING [facility] HH NEB. DR. WILKINS ADVISED OF PT. STATUS WITH ORDERS RECEIVED AND CARRIED OUT.
--- NOTE | 2018-09-04 11:25 | NUR ---
PT. TO AND FROM CT FOR CT OF ABD AND PELVIS WITHOUT CONTRAST.
--- NOTE | 2018-09-04 11:48 | NUR ---
MEDS: VIT. B12 1000 MCG IM RT DELT. GIVEN PER MD ORDER.
--- NOTE | 2018-09-04 11:50 | NUR ---
MEDS: PT. MEDICATED WITH TORADOL 30MG IM RT GLUT PER MD ORDER.
[2018-09-04 12:05] VITALS: BP 111/88
--- NOTE | 2018-09-04 12:05 | NUR ---
Discharge Instructions See e-MAR for any mediations given with this visit. Patient education given on disease process. Patient verbalized understanding. Previous labs reviewed. Patient discharged in stable condition with after care instructions and follow up appointment. PAIN DOWN FROM 9 TO 5 PRIOR TO DISCHARGE.
[2018-09-04 12:30] LABS: BUN/Creatinine Ratio 11.6; Calcium 8.3 mg/dL (8.5-10.1); Potassium 3.8 mmol/L (3.5-5.1)
== END | disposition home or self-care (01) ==
LOC: CHF HDHVI 10:57
PROVIDERS: ATTEND Internal Medicine Cardiovascular Disease
DX: D51.9 Vitamin B12 deficiency anemia, unspecified (principal); R10.9 Unspecified abdominal pain; I25.10 Atherosclerotic heart disease of native coronary artery without angina pectoris; I13.0 Hypertensive heart and chronic kidney disease with heart failure and stage 1 through stage 4 chronic kidney disease, or unspecified chronic kidney disease; E11.22 Type 2 diabetes mellitus with diabetic chronic kidney disease; N18.9 Chronic kidney disease, unspecified; I50.9 Heart failure, unspecified; I42.9 Cardiomyopathy, unspecified; I48.0 Paroxysmal atrial fibrillation; J44.9 Chronic obstructive pulmonary disease, unspecified; E11.42 Type 2 diabetes mellitus with diabetic polyneuropathy; E78.5 Hyperlipidemia, unspecified; E78.00 Pure hypercholesterolemia, unspecified; E03.9 Hypothyroidism, unspecified; M19.90 Unspecified osteoarthritis, unspecified site; F32.9 Major depressive disorder, single episode, unspecified; F41.9 Anxiety disorder, unspecified; E66.9 Obesity, unspecified; Z68.33 Body mass index [BMI] 33.0-33.9, adult; Z79.01 Long term (current) use of anticoagulants; Z79.82 Long term (current) use of aspirin; Z95.810 Presence of automatic (implantable) cardiac defibrillator; Z86.73 Personal history of transient ischemic attack (TIA), and cerebral infarction without residual deficits
CPT/HCPCS: 36415; 74150; 80048; 82565; 96372; G0463; J1885; J3420

== ENCOUNTER → 2018-11-17 | Outpatient (CLI) | payer MEDICARE, MEDICAID ==
[~2018-11-17] MED LIST changes: -KETOROLAC TROMETH 60MG/2ML VIAL IM ONE
[2018-11-17 12:00] VITALS: BP 136/68
--- NOTE | 2018-11-17 12:35 | NUR ---
CHF FOLLOWUP AFTER [facility]PITALIZATION. NOTED TO HAVE WEIGHT GAIN. PT REPORTS RECENT NONCOMPLIANCE. LABS DRAWN AND SENT. EDUCATION ON DISEASE PROCESS AND LIFESTYLE CHANGES. REPEAT BACK INSTRUCTIONS OBTAINED. CARDIODYNAMICS DONE AND REVIEWED. 6MWT DONE AND REVIEWED. Discharge Instructions See e-MAR for any mediations given with this visit. Patient education given on disease process. Patient verbalized understanding. Previous labs reviewed. Patient discharged in stable condition with after care instructions and follow up appointment IN 1 MONTH
[2018-11-17 14:00] VITALS: BP 109/79
[2018-11-17 16:46] LABS: Basophils # (auto) 0.1 uL; Basophils % (auto) 0.7 % (0.0-2.0); Eosinophils # (auto) 0.2 uL; Mean Corpuscular Volume 58.2 fL (80.0-100.0); Monocytes # (auto) 0.8 uL; Nucleated Red Blood Cells % 0.3 %
[2018-11-17 16:47] LABS: Eosinophils % (auto) 2.4 % (0.0-7.0); Hematocrit 43.7 % (41.0-53.0); Lymphocytes # (auto) 2.8 uL; Lymphocytes % (auto) 31.2 % (10.0-50.0); Mean Corpuscular Hemoglobin 17.4 pg (28.0-32.0); Mean Corpuscular Hgb Conc. 29.8 g/dL (32.0-36.0); Monocytes % (auto) 9.3 % (0.0-12.0); Neutrophils % (auto) 56.4 % (37.0-80.0); Platelet Count (auto) 277 10^3/uL (140-450); Red Blood Cells 7.51 10^6/uL (4.5-5.90); White Blood Cell 8.8 10^3/uL (4.4-10.8)
[2018-11-17 16:52] LABS: Red Cell Distribution Width 21.8 % (11.8-14.3)
[2018-11-17 16:53] LABS: Hemoglobin 12.9 g/dL (13.5-17.5)
[2018-11-17 17:28] LABS: Albumin 3.4 g/dL (3.4-5.0); Calcium 8.4 mg/dL (8.5-10.1); Potassium 3.8 mmol/L (3.5-5.1)
[2018-11-17 17:40] LABS: Bilirubin, Total 0.3 mg/dL (0.2-1.0); Total Protein 7.3 g/dL (6.4-8.2)
== END | disposition home or self-care (01) ==
LOC: CHF HDHVI 10:53
PROVIDERS: ATTEND Internal Medicine Cardiovascular Disease
DX: I25.10 Atherosclerotic heart disease of native coronary artery without angina pectoris (principal); D64.9 Anemia, unspecified; E11.9 Type 2 diabetes mellitus without complications; D51.9 Vitamin B12 deficiency anemia, unspecified; E55.9 Vitamin D deficiency, unspecified; G45.9 Transient cerebral ischemic attack, unspecified; I11.0 Hypertensive heart disease with heart failure; I50.9 Heart failure, unspecified
CPT/HCPCS: 36415; 80053; 82306; 82607; 83036; 85025; 93701; 94618; G0463; J3420

== ENCOUNTER → 2018-12-01 | Outpatient (CLI) | payer MEDICARE, MEDICAID ==
[~2018-12-01] MED LIST changes: -CYANOCOBALAMIN (B-12) 1000 MCG/1 ML VIAL IM ONE; -CYANOCOBALAMIN (B-12) 1000 MCG/1 ML VIAL ONE; +KETOROLAC TROMETH 60MG/2ML VIAL IM ONE
[2018-12-01 14:15] VITALS: BP 116/85
[2018-12-01 14:42] VITALS: BP 116/85
--- NOTE | 2018-12-01 14:42 | NUR ---
CHF CLINIC Discharge Instructions See e-MAR for any mediations given with this visit. Patient education given on disease process. Patient verbalized understanding. Previous labs reviewed. Patient discharged in stable condition with after care instructions and follow up appointment. NOTE TORADOL IM L GLUTE ADMIN Sarah PERDOMO RN
== END | disposition home or self-care (01) ==
LOC: CHF HDHVI 14:25
PROVIDERS: ATTEND Internal Medicine Cardiovascular Disease
DX: M54.9 Dorsalgia, unspecified (principal); I11.0 Hypertensive heart disease with heart failure; I50.9 Heart failure, unspecified; I25.10 Atherosclerotic heart disease of native coronary artery without angina pectoris; E11.9 Type 2 diabetes mellitus without complications; Z86.73 Personal history of transient ischemic attack (TIA), and cerebral infarction without residual deficits
CPT/HCPCS: 96372; G0463; J1885

== ENCOUNTER → 2018-12-22 | Outpatient (CLI) | payer MEDICARE, MEDICAID ==
[~2018-12-22] MED LIST changes: +CYANOCOBALAMIN (B-12) 1000 MCG/1 ML VIAL IM ONE; +CYANOCOBALAMIN (B-12) 1000 MCG/1 ML VIAL ONE; -KETOROLAC TROMETH 60MG/2ML VIAL IM ONE
[2018-12-22 11:40] VITALS: BP 100/73
[2018-12-22 12:30] VITALS: BP 107/76
--- NOTE | 2018-12-22 12:30 | NUR ---
CHF CLINIC Discharge Instructions See e-MAR for any mediations given with this visit. Patient education given on disease process. Patient verbalized understanding. Previous labs reviewed. Patient discharged in stable condition with after care instructions and follow up appointment. NOTE B12 IM L DELTOID ADMIN BY NICOLAS CHING. CARDIODYNAMICS PERFORMED BY MONROE CHING AND REVIEWED BY CONOR MILLS. WENT OVER MEDICATIONS AND SPLITTING THEM UP TO 3 TIMES A DAY INSTEAD OF TWICE A DAY. PATIENT VERBALIZED UNDERSTANDING AND IS AWARE HE CAN COME BACK IN IF HE NEEDS HELP WITH HIS MEDICATION AGAIN.
[2018-12-22 16:29] LABS: Basophils # (auto) 0.1 uL; Mean Corpuscular Hemoglobin 17.1 pg (28.0-32.0); Monocytes # (auto) 0.9 uL
[2018-12-22 16:37] LABS: Albumin 3.6 g/dL (3.4-5.0); Basophils % (auto) 1.8 % (0.0-2.0); Calcium 8.5 mg/dL (8.5-10.1); Eosinophils # (auto) 0.1 uL; Hematocrit 44.1 % (41.0-53.0); Hemoglobin 13.2 g/dL (13.5-17.5); Lymphocytes # (auto) 2.4 uL; Lymphocytes % (auto) 30.2 % (10.0-50.0); Magnesium 2.8 mg/dL (1.6-2.6); Mean Corpuscular Volume 56.9 fL (80.0-100.0); Monocytes % (auto) 11.6 % (0.0-12.0); Neutrophils # (auto) 4.4 uL; Neutrophils % (auto) 55.4 % (37.0-80.0); Nucleated Red Blood Cells % 0.4 %; Platelet Count (auto) 299 10^3/uL (140-450); Potassium 3.2 mmol/L (3.5-5.1); Red Blood Cells 7.75 10^6/uL (4.5-5.90)
[2018-12-22 16:40] LABS: Bilirubin, Total 0.5 mg/dL (0.2-1.0); Total Protein 7.3 g/dL (6.4-8.2)
[2018-12-22 17:13] LABS: Red Cell Distribution Width 21.5 % (11.8-14.3)
== END | disposition home or self-care (01) ==
LOC: CHF HDHVI 11:33
PROVIDERS: ATTEND Internal Medicine Cardiovascular Disease
DX: I11.0 Hypertensive heart disease with heart failure (principal); I50.9 Heart failure, unspecified; D64.9 Anemia, unspecified; R53.83 Other fatigue; E61.2 Magnesium deficiency; I25.10 Atherosclerotic heart disease of native coronary artery without angina pectoris; E11.9 Type 2 diabetes mellitus without complications; Z86.73 Personal history of transient ischemic attack (TIA), and cerebral infarction without residual deficits
CPT/HCPCS: 36415; 80053; 83735; 85025; 93701; 96372; G0463; J3420

== ENCOUNTER → 2019-03-02 | Outpatient (CLI) | payer MEDICARE, MEDICAID ==
[2019-03-02 07:50] VITALS: BP 128/83
--- NOTE | 2019-03-02 08:00 | NUR ---
IN FOR CHF FOLLOWUP. AFFECT CHEERFUL AND WITHOUT DISTRESS. VS WNL.
--- NOTE | 2019-03-02 09:56 | NUR ---
EDUCATION REGARDING SODIUM INTAKE AND FLUID MANAGEMENT
--- NOTE | 2019-03-02 10:25 | NUR ---
CHF MEDICATION ADMINISTRATION VIT B12 1000 MCG IM TO RIGHT DELTOID AT 0925 CARDIODYNAMICS 6 MWT 12 LEAD EKG FOR ARYTHMIA
[2019-03-02 10:30] VITALS: BP 124/87
--- NOTE | 2019-03-02 10:30 | NUR ---
CHF VISIT COMPLETED. PT IS BEING SEEN AT [facility] FOR POSSIBLE SURGERY. RECEPTIVE TO TEACHING ON SODIUM AND FLUID RESTRICTIONS. REVIEWED PREVIOUS LABS AND KIDNEY FUNCTION. ADDITIONAL QUESTIONS DENIED. DISCHARGED TO SELF CARE IN NO DISTRESS OR DISCOMFORT AT TIME OF DISCHARGE.
[2019-03-02 12:44] LABS: Albumin 3.2 g/dL (3.4-5.0); Magnesium 2.7 mg/dL (1.6-2.6); Potassium 4.3 mmol/L (3.5-5.1)
[2019-03-02 12:47] LABS: BUN/Creatinine Ratio 8.7
[2019-03-02 12:57] LABS: Bilirubin, Total 0.3 mg/dL (0.2-1.0); Total Protein 6.9 g/dL (6.4-8.2)
[2019-03-02 13:23] LABS: Basophils # (auto) 0.1 uL; Basophils % (auto) 0.9 % (0.0-2.0); Eosinophils # (auto) 0.2 uL; Eosinophils % (auto) 2.7 % (0.0-7.0); Hematocrit 42.6 % (41.0-53.0); Hemoglobin 12.7 g/dL (13.5-17.5); Lymphocytes # (auto) 2.4 uL; Mean Corpuscular Hgb Conc. 29.8 g/dL (32.0-36.0); Mean Corpuscular Volume 57.2 fL (80.0-100.0); Monocytes # (auto) 0.7 uL; Monocytes % (auto) 9.6 % (0.0-12.0); Neutrophils % (auto) 53.8 % (37.0-80.0); Nucleated Red Blood Cells % 0.1 %; Platelet Count (auto) 246 10^3/uL (140-450); Red Blood Cells 7.45 10^6/uL (4.5-5.90); White Blood Cell 7.4 10^3/uL (4.4-10.8)
[2019-03-02 13:24] LABS: Red Cell Distribution Width 23.2 % (11.8-14.3)
== END | disposition home or self-care (01) ==
LOC: CHF HDHVI 08:03
PROVIDERS: ATTEND Internal Medicine Cardiovascular Disease
DX: D64.9 Anemia, unspecified (principal); I13.0 Hypertensive heart and chronic kidney disease with heart failure and stage 1 through stage 4 chronic kidney disease, or unspecified chronic kidney disease; E11.22 Type 2 diabetes mellitus with diabetic chronic kidney disease; I50.9 Heart failure, unspecified; N18.9 Chronic kidney disease, unspecified; I25.10 Atherosclerotic heart disease of native coronary artery without angina pectoris; R53.83 Other fatigue; J44.9 Chronic obstructive pulmonary disease, unspecified
CPT/HCPCS: 36415; 80053; 82306; 83036; 83735; 83880; 85025; 93701; G0463; J3420

== ENCOUNTER → 2019-03-16 | Outpatient (CLI) | payer MEDICARE, MEDICAID ==
[2019-03-16 10:00] VITALS: BP 122/74
[2019-03-16 11:45] VITALS: BP 115/84
--- NOTE | 2019-03-16 11:45 | NUR ---
IN TO CLINIC WITH REPORTS OF UNCONTROLLED AFIB. PT REPORTS FATIGUE AND SOB WITH EPISODES. LABS DRAWN AND SENT. REVIEWED MEDS. REVIEWED MECHANISMS OF AFIB. TEACHING DONE VERBALLY AND WITH WRITTEN MATERIALS. REPEAT BACK INSTRUCTIONS OBTAINED. ADDITIONAL QUESTIONS DENIED. FOLLOWUP WITH LAB RESULTS.
[2019-03-16 12:17] LABS: Basophils # (auto) 0.1 uL; Basophils % (auto) 0.7 % (0.0-2.0); Hematocrit 46.4 % (41.0-53.0); Nucleated Red Blood Cells % 0.1 %
[2019-03-16 12:19] LABS: Eosinophils # (auto) 0.1 uL; Hemoglobin 13.7 g/dL (13.5-17.5); Lymphocytes # (auto) 3.4 uL; Lymphocytes % (auto) 38.8 % (10.0-50.0); Mean Corpuscular Hemoglobin 17.1 pg (28.0-32.0); Mean Corpuscular Hgb Conc. 29.5 g/dL (32.0-36.0); Mean Corpuscular Volume 57.9 fL (80.0-100.0); Monocytes # (auto) 0.7 uL; Monocytes % (auto) 7.8 % (0.0-12.0); Neutrophils # (auto) 4.5 uL; Neutrophils % (auto) 51.7 % (37.0-80.0); Platelet Count (auto) 276 10^3/uL (140-450); White Blood Cell 8.7 10^3/uL (4.4-10.8)
[2019-03-16 12:57] LABS: Red Cell Distribution Width 22.7 % (11.8-14.3)
[2019-03-16 12:58] LABS: Red Blood Cells 8.02 10^6/uL (4.5-5.90)
[2019-03-16 13:17] LABS: Albumin 3.3 g/dL (3.4-5.0); Calcium 8.6 mg/dL (8.5-10.1); Magnesium 2.7 mg/dL (1.6-2.6); Potassium 3.7 mmol/L (3.5-5.1)
[2019-03-16 13:21] LABS: BUN/Creatinine Ratio 10.4; Bilirubin, Total 0.5 mg/dL (0.2-1.0); Total Protein 7.1 g/dL (6.4-8.2)
--- NOTE | 2019-03-16 15:00 | NUR ---
CALLED WITH LAB RESULTS. FOLLOW WITH PACER INTERROGATION APPOINTMENT FOR TUESDAY AT 1030.
== END | disposition home or self-care (01) ==
LOC: CHF HDHVI 10:29
PROVIDERS: ATTEND Internal Medicine Cardiovascular Disease
DX: I25.10 Atherosclerotic heart disease of native coronary artery without angina pectoris (principal); I13.0 Hypertensive heart and chronic kidney disease with heart failure and stage 1 through stage 4 chronic kidney disease, or unspecified chronic kidney disease; E11.22 Type 2 diabetes mellitus with diabetic chronic kidney disease; I50.9 Heart failure, unspecified; N18.9 Chronic kidney disease, unspecified; I48.1 Persistent atrial fibrillation; J44.9 Chronic obstructive pulmonary disease, unspecified; E86.0 Dehydration; D45 Polycythemia vera; D56.9 Thalassemia, unspecified; E55.9 Vitamin D deficiency, unspecified; Z79.899 Other long term (current) drug therapy
CPT/HCPCS: 36415; 80053; 82306; 82542; 83735; 83880; 85025; 96372; G0463; J3420

== ENCOUNTER → 2019-05-31 | Outpatient (CLI) | payer MEDICARE, MEDICAID ==
[~2019-05-31] MED LIST changes: +KETOROLAC TROMETH 60MG/2ML VIAL IM ONE; +KETOROLAC TROMETH 60MG/2ML VIAL ONE; +POTA-220 PO; -POTA20TA53 PO
[2019-05-31 10:40] VITALS: BP 109/84
--- NOTE | 2019-05-31 10:40 | NUR ---
CHF CLINIC Discharge Instructions See e-MAR for any mediations given with this visit. Patient education given on disease process. Patient verbalized understanding. Previous labs reviewed. Patient discharged in stable condition with after care instructions and follow up appointment ON TUESDAY WITH DR WILKINS. NOTE B12 IM R DELTOID ADMIN BY MONROE CHING. TORADOL IM L GLUTE ADMIN BY MONROE CHING. CARDIODYNAMICS PERFORMED BY MONROE CHING AND REVIEWED WITH PATIENT BY CONOR MILLS.
[2019-05-31 12:54] LABS: Calcium 8.7 mg/dL (8.5-10.1); Magnesium 2.7 mg/dL (1.6-2.6); Potassium 4.1 mmol/L (3.5-5.1)
[2019-05-31 13:04] LABS: Basophils # (auto) 0.1 uL; Basophils % (auto) 0.8 % (0.0-2.0); Eosinophils # (auto) 0.2 uL; Hemoglobin 14.9 g/dL (13.5-17.5); Monocytes # (auto) 0.8 uL; Monocytes % (auto) 8.8 % (0.0-12.0)
[2019-05-31 13:06] LABS: Eosinophils % (auto) 1.8 % (0.0-7.0); Hematocrit 48.1 % (41.0-53.0); Lymphocytes # (auto) 3.5 uL; Lymphocytes % (auto) 36.5 % (10.0-50.0); Mean Corpuscular Hemoglobin 18.1 pg (28.0-32.0); Mean Corpuscular Hgb Conc. 31.1 g/dL (32.0-36.0); Mean Corpuscular Volume 58.1 fL (80.0-100.0); Neutrophils # (auto) 4.9 uL; Neutrophils % (auto) 52.1 % (37.0-80.0); Platelet Count (auto) 310 10^3/uL (140-450); Red Blood Cells 8.27 10^6/uL (4.5-5.90); White Blood Cell 9.5 10^3/uL (4.4-10.8)
[2019-05-31 13:12] LABS: Red Cell Distribution Width 21.7 % (11.8-14.3)
[2019-05-31 13:13] LABS: Albumin 3.3 g/dL (3.4-5.0); BUN/Creatinine Ratio 8.3; Bilirubin, Total 0.4 mg/dL (0.2-1.0); Total Protein 7.2 g/dL (6.4-8.2)
== END | disposition home or self-care (01) ==
LOC: CHF HDHVI 09:35
PROVIDERS: ATTEND Internal Medicine Cardiovascular Disease
DX: G40.89 Other seizures (principal); I11.0 Hypertensive heart disease with heart failure; I50.9 Heart failure, unspecified; M54.9 Dorsalgia, unspecified; R53.83 Other fatigue; Z79.899 Other long term (current) drug therapy
CPT/HCPCS: 36415; 80053; 82542; 83036; 83735; 85025; 93701; 96372; G0463; J1885; J3420

== ENCOUNTER → 2019-07-30 | Outpatient (CLI) | payer MEDICARE, MEDICAID ==
[~2019-07-30] MED LIST changes: -CYANOCOBALAMIN (B-12) 1000 MCG/1 ML VIAL IM ONE; -CYANOCOBALAMIN (B-12) 1000 MCG/1 ML VIAL ONE; +DEXL60CA3 PO; +FLEC100T21 PO; +FLUT250M2 INH; +FURO1TAB33 PO; -KETOROLAC TROMETH 60MG/2ML VIAL IM ONE; -KETOROLAC TROMETH 60MG/2ML VIAL ONE; +LIDO5DIS21 TOP; +LORA-205 PO; +METO100T87 PO; +POM INH; +POTA8TAB2 PO; +TRAM50TA2 PO; +[UNRECOGNIZED DRUG - CODE] BU
--- NOTE | 2019-07-30 08:15 | NUR ---
IV removal IV DC'd with sterile technique, catheter fully intact. Pressure dressing applied to site. Patient tolerated procedure well. Discharged with aftercare instructions per MD. NOTE: RIGHT LEAD GEN CHANGE
[2019-07-30 08:45] VITALS: BP 109/74
[2019-07-30 09:07] VITALS: BP 118/86
[2019-07-30 11:56] LABS: Eosinophils # (auto) 0.2 uL; Lymphocytes # (auto) 3.9 uL; Neutrophils # (auto) 4.5 uL; White Blood Cell 9.7 10^3/uL (4.4-10.8)
[2019-07-30 12:05] LABS: Basophils # (auto) 0 uL; Basophils % (auto) 0.4 % (0.0-2.0); Eosinophils % (auto) 2.5 % (0.0-7.0); Hematocrit 44.8 % (41.0-53.0); Hemoglobin 13.4 g/dL (13.5-17.5); Lymphocytes % (auto) 40.3 % (10.0-50.0); Mean Corpuscular Volume 60.1 fL (80.0-100.0); Monocytes % (auto) 9.8 % (0.0-12.0); Nucleated Red Blood Cells % 0.2 %; Platelet Count (auto) 249 10^3/uL (140-450); Red Blood Cells 7.45 10^6/uL (4.5-5.90)
[2019-07-30 12:06] LABS: Calcium 8.3 mg/dL (8.5-10.1); Potassium 4.1 mmol/L (3.5-5.1); Red Cell Distribution Width 22.4 % (11.8-14.3)
[2019-07-30 12:16] LABS: INR 1.13 (0.9-1.15)
== END | disposition home or self-care (01) ==
LOC: Rad HDHVI 07:58
PROVIDERS: ATTEND Internal Medicine Cardiovascular Disease
DX: Z01.812 Encounter for preprocedural laboratory examination (principal); I47.1 Supraventricular tachycardia; I49.5 Sick sinus syndrome; M47.894 Other spondylosis, thoracic region; I48.91 Unspecified atrial fibrillation; I25.119 Atherosclerotic heart disease of native coronary artery with unspecified angina pectoris; I13.2 Hypertensive heart and chronic kidney disease with heart failure and with stage 5 chronic kidney disease, or end stage renal disease; N18.6 End stage renal disease; I50.9 Heart failure, unspecified; E78.5 Hyperlipidemia, unspecified; Z95.0 Presence of cardiac pacemaker; Z88.5 Allergy status to narcotic agent
CPT/HCPCS: 36415; 71046; 80048; 85025; 85610; 85730; 93005; G0463

== ENCOUNTER → 2020-02-19 | Outpatient (CLI) | payer MEDICARE, MEDICAID ==
[~2020-02-19] MED LIST changes: -CEPH500T PO; +CYANOCOBALAMIN (B-12) 1000 MCG/1 ML VIAL IM ONE; +CYANOCOBALAMIN (B-12) 1000 MCG/1 ML VIAL ONE; -FLUT1INH6 IN; +MAGN400T40 PO; -MAGN400T5 PO; -POTA-220 PO; -POTA12PO2 PO; -PREG50CA PO; -SOTA80TA PO; -TRIA75TA55 PO; -VERA240C2 PO
[2020-02-19 12:59] VITALS: BP 106/80
[2020-02-19 16:11] LABS: Basophils # (auto) 0 10 ^3/uL (0-0.2); Eosinophils # (auto) 0.2 10 ^3/uL (0-0.8); Hemoglobin 14.2 g/dL (13.5-17.5); Neutrophils # (auto) 4.4 10 ^3/uL (1.6-8.6)
[2020-02-19 16:12] LABS: Basophils % (auto) 0.6 % (0.0-2.0); Eosinophils % (auto) 2.4 % (0.0-7.0); Hematocrit 47.3 % (41.0-53.0); Lymphocytes # (auto) 2.9 10 ^3/uL (0.4-5.4); Lymphocytes % (auto) 35.2 % (10.0-50.0); Mean Corpuscular Hemoglobin 18.2 pg (28.0-32.0); Mean Corpuscular Volume 60.8 fL (80.0-100.0); Monocytes # (auto) 0.8 10 ^3/uL (0-1.3); Monocytes % (auto) 9.1 % (0.0-12.0); Neutrophils % (auto) 52.7 % (37.0-80.0); Nucleated Red Blood Cells % 0.2 %; Platelet Count (auto) 238 10^3/uL (140-450); Red Blood Cells 7.78 10^6/uL (4.5-5.90); White Blood Cell 8.4 10^3/uL (4.4-10.8)
[2020-02-19 16:21] LABS: Albumin 3.2 g/dL (3.4-5.0); Calcium 8.2 mg/dL (8.5-10.1); Magnesium 2.4 mg/dL (1.6-2.6); Potassium 4.1 mmol/L (3.5-5.1)
[2020-02-19 16:24] LABS: BUN/Creatinine Ratio 10.7; Bilirubin, Total 0.4 mg/dL (0.2-1.0); Total Protein 6.9 g/dL (6.4-8.2)
[2020-02-19 16:25] LABS: Red Cell Distribution Width 21.9 % (11.8-14.3)
== END | disposition home or self-care (01) ==
LOC: Rad HDHVI 11:04
PROVIDERS: ATTEND Internal Medicine Cardiovascular Disease
DX: D64.9 Anemia, unspecified (principal); E11.9 Type 2 diabetes mellitus without complications; I50.23 Acute on chronic systolic (congestive) heart failure; E83.40 Disorders of magnesium metabolism, unspecified; J44.9 Chronic obstructive pulmonary disease, unspecified; I25.2 Old myocardial infarction; Z86.73 Personal history of transient ischemic attack (TIA), and cerebral infarction without residual deficits
CPT/HCPCS: 36415; 80053; 83036; 83735; 83880; 85025; 93306; 94618; 96372; G0463; J3420

== ENCOUNTER → 2020-04-02 | Outpatient (CLI) | payer MEDICARE, MEDICAID ==
[~2020-04-02] MED LIST changes: -CYANOCOBALAMIN (B-12) 1000 MCG/1 ML VIAL IM ONE; -CYANOCOBALAMIN (B-12) 1000 MCG/1 ML VIAL ONE; -DEXL60CA3 PO; +DEXL60CA4 PO
== END | disposition home or self-care (01) ==
LOC: Rad HDHVI 13:06
PROVIDERS: ATTEND Internal Medicine Cardiovascular Disease
DX: J84.10 Pulmonary fibrosis, unspecified (principal); K44.9 Diaphragmatic hernia without obstruction or gangrene
CPT/HCPCS: 71250

== ENCOUNTER → 2020-04-15 | Outpatient (CLI) | payer MEDICARE, MEDICAID ==
[2020-04-15 12:32] LABS: BUN/Creatinine Ratio 9.4; Calcium 8.3 mg/dL (8.5-10.1); Potassium 3.7 mmol/L (3.5-5.1)
== END | disposition home or self-care (01) ==
LOC: LAB 11:42
PROVIDERS: ATTEND Internal Medicine Cardiovascular Disease
DX: I10 Essential (primary) hypertension (principal); G40.89 Other seizures
CPT/HCPCS: 36415; 80048; 82542

== ENCOUNTER → 2020-05-26 | Outpatient (CLI) | payer MEDICARE, MEDICAID | END | disposition home or self-care (01) | LOC: Rad HDHVI 12:51 | PROVIDERS: ATTEND Internal Medicine Cardiovascular Disease | DX: K56.41 Fecal impaction (principal); R10.9 Unspecified abdominal pain | CPT/HCPCS: 74018 ==

== ENCOUNTER → 2020-06-25 | Outpatient (CLI) | payer MEDICARE, MEDICAID | END | disposition home or self-care (01) | LOC: LAB 13:00 | PROVIDERS: ATTEND Internal Medicine Cardiovascular Disease | DX: Z51.81 Encounter for therapeutic drug level monitoring (principal) | CPT/HCPCS: 82542 ==

== ENCOUNTER → 2020-07-04 | Outpatient (CLI) | payer MEDICARE, MEDICAID | END | disposition home or self-care (01) | LOC: Rad HDHVI 13:57 | PROVIDERS: ATTEND Internal Medicine Cardiovascular Disease | DX: R00.2 Palpitations (principal); R06.02 Shortness of breath | CPT/HCPCS: 93306 ==

== ENCOUNTER → 2020-07-08 | Outpatient (CLI) | payer MEDICARE, MEDICAID ==
[~2020-07-08] VITALS: Ht 182.9 cm; Wt 117.9 kg
[~2020-07-08] MED LIST changes: +ADENOSINE 90 MG/30 ML INJ IV ONE; +ADENOSINE 99 MG in GIVE UN-DILUTED 0 ML IV ONE
== END | disposition home or self-care (01) ==
LOC: Rad HDHVI 09:30
PROVIDERS: ATTEND Internal Medicine Cardiovascular Disease
DX: I11.0 Hypertensive heart disease with heart failure (principal); I50.23 Acute on chronic systolic (congestive) heart failure; I25.2 Old myocardial infarction; E78.00 Pure hypercholesterolemia, unspecified; R07.9 Chest pain, unspecified; E11.9 Type 2 diabetes mellitus without complications; Z95.0 Presence of cardiac pacemaker; Z82.49 Family history of ischemic heart disease and other diseases of the circulatory system
CPT/HCPCS: 78452; 93005; 96374; 96375; A9500; J0153

== ENCOUNTER → 2020-10-06 | Outpatient (CLI) | payer MEDICARE, MEDICAID ==
[~2020-10-06] MED LIST changes: -ADENOSINE 90 MG/30 ML INJ IV ONE; -ADENOSINE 99 MG in GIVE UN-DILUTED 0 ML IV ONE
== END | disposition home or self-care (01) ==
LOC: Rad HDHVI 09:31
PROVIDERS: ATTEND Internal Medicine Cardiovascular Disease
DX: R06.02 Shortness of breath (principal); Z96.89 Presence of other specified functional implants; Z95.0 Presence of cardiac pacemaker
CPT/HCPCS: 71046

== ENCOUNTER → 2021-08-11 | Outpatient (CLI) | payer MEDICARE, MEDICAID ==
[~2021-08-11] MED LIST changes: -ASPI-231 PO; +ASPI1TAB20 PO; +CYANOCOBALAMIN (B-12) 1000 MCG/1 ML VIAL IM ONE; +CYANOCOBALAMIN (B-12) 1000 MCG/1 ML VIAL ONE; +FLEC100T PO; -FLEC100T21 PO
[2021-08-11 09:33] VITALS: BP 116/79
[2021-08-11 11:47] LABS: Basophils # (auto) 0 10 ^3/uL (0-0.2); Monocytes # (auto) 0.7 10 ^3/uL (0-1.3)
[2021-08-11 11:52] LABS: Basophils % (auto) 0.5 % (0.0-2.0); Eosinophils # (auto) 0.2 10 ^3/uL (0-0.8); Eosinophils % (auto) 2.6 % (0.0-7.0); Hematocrit 49.5 % (41.0-53.0); Hemoglobin 15.6 g/dL (13.5-17.5); Lymphocytes # (auto) 3.7 10 ^3/uL (0.4-5.4); Lymphocytes % (auto) 42.4 % (10.0-50.0); Mean Corpuscular Hgb Conc. 31.6 g/dL (32.0-36.0); Mean Corpuscular Volume 66.6 fL (80.0-100.0); Monocytes % (auto) 7.9 % (0.0-12.0); Neutrophils # (auto) 4.1 10 ^3/uL (1.6-8.6); Neutrophils % (auto) 46.6 % (37.0-80.0); Red Blood Cells 7.43 10^6/uL (4.5-5.90); Red Cell Distribution Width 17.3 % (11.8-14.3); White Blood Cell 8.8 10^3/uL (4.4-10.8)
[2021-08-11 11:55] LABS: Potassium 4.2 mmol/L (3.5-5.1)
[2021-08-11 12:09] LABS: BUN/Creatinine Ratio 15.4; Bilirubin, Total 0.3 mg/dL (0.2-1.0); Calcium 8.1 mg/dL (8.5-10.1)
== END | disposition home or self-care (01) ==
LOC: CHF HDHVI 08:49
PROVIDERS: ATTEND Internal Medicine Cardiovascular Disease
DX: I27.21 Secondary pulmonary arterial hypertension (principal); I11.0 Hypertensive heart disease with heart failure; I50.23 Acute on chronic systolic (congestive) heart failure; R53.83 Other fatigue; E11.9 Type 2 diabetes mellitus without complications; Z79.899 Other long term (current) drug therapy
CPT/HCPCS: 36415; 80053; 80156; 82542; 83735; 85025; 96372; G0463; J3420

== ENCOUNTER → 2022-02-09 | Outpatient (CLI) | payer MEDICARE, MEDICAID ==
[~2022-02-09] MED LIST changes: -CYANOCOBALAMIN (B-12) 1000 MCG/1 ML VIAL IM ONE; -CYANOCOBALAMIN (B-12) 1000 MCG/1 ML VIAL ONE
== END | disposition home or self-care (01) ==
LOC: Rad HDHVI 15:11
PROVIDERS: ATTEND Internal Medicine Cardiovascular Disease
DX: R06.02 Shortness of breath (principal); R07.9 Chest pain, unspecified; R42 Dizziness and giddiness
CPT/HCPCS: 71046

== ENCOUNTER → 2022-03-01 | Outpatient (CLI) | payer MEDICARE, MEDICAID ==
[~2022-03-01] VITALS: Ht 182.9 cm; Wt 115.7 kg
[~2022-03-01] MED LIST changes: +ADENOSINE 90 MG/30 ML INJ IV ONE; +ADENOSINE 97 MG in GIVE UN-DILUTED 0 ML IV ONE
== END | disposition home or self-care (01) ==
LOC: Rad HDHVI 08:22
PROVIDERS: ATTEND Internal Medicine Cardiovascular Disease
DX: Z01.810 Encounter for preprocedural cardiovascular examination (principal); I25.10 Atherosclerotic heart disease of native coronary artery without angina pectoris; R07.9 Chest pain, unspecified; R06.02 Shortness of breath; R42 Dizziness and giddiness; I25.2 Old myocardial infarction; I49.5 Sick sinus syndrome; I10 Essential (primary) hypertension; E11.9 Type 2 diabetes mellitus without complications; Z95.0 Presence of cardiac pacemaker
CPT/HCPCS: 78452; 93005; 96374; 96375; A9500; J0153

== ENCOUNTER → 2022-03-09 | Outpatient (CLI) | payer MEDICARE, MEDICAID ==
[~2022-03-09] MED LIST changes: -ADENOSINE 90 MG/30 ML INJ IV ONE; -ADENOSINE 97 MG in GIVE UN-DILUTED 0 ML IV ONE
== END | disposition home or self-care (01) ==
LOC: Rad HDHVI 10:59
PROVIDERS: ATTEND Internal Medicine Cardiovascular Disease
DX: I71.2 Thoracic aortic aneurysm, without rupture (principal); R00.2 Palpitations; I10 Essential (primary) hypertension
CPT/HCPCS: 93306

== ENCOUNTER → 2022-06-08 | Outpatient (CLI) | payer MEDICARE, MEDICAID ==
[~2022-06-08] MED LIST changes: +IOHEXOL 350 MG/ML 100ML IJ ONE
[2022-06-08 11:05] VITALS: BP 133/95
[2022-06-08 12:31] VITALS: BP 122/84
== END | disposition home or self-care (01) ==
LOC: Rad HDHVI 10:55
PROVIDERS: ATTEND Internal Medicine Cardiovascular Disease
DX: R94.4 Abnormal results of kidney function studies (principal); R51.9 Headache, unspecified; H53.8 Other visual disturbances
CPT/HCPCS: 36415; 82565; 84520; G0463; Q9967

== ENCOUNTER → 2022-06-09 | Outpatient (CLI) | payer MEDICARE, MEDICAID ==
[~2022-06-09] MED LIST changes: +CYANOCOBALAMIN (B-12) 1000 MCG/1 ML VIAL IM ONE; +CYANOCOBALAMIN (B-12) 1000 MCG/1 ML VIAL ONE
[2022-06-09 10:15] VITALS: BP 102/83
[2022-06-09 10:40] VITALS: BP 118/85
== END | disposition home or self-care (01) ==
LOC: Rad HDHVI 10:04
PROVIDERS: ATTEND Internal Medicine Cardiovascular Disease
DX: H53.10 Unspecified subjective visual disturbances (principal); R51.9 Headache, unspecified
CPT/HCPCS: 70496; 96372; G0463; J3420; Q9967

== ENCOUNTER → 2022-06-23 | Outpatient (CLI) | payer MEDICARE, MEDICAID ==
[~2022-06-23] MED LIST changes: -CYANOCOBALAMIN (B-12) 1000 MCG/1 ML VIAL IM ONE; -CYANOCOBALAMIN (B-12) 1000 MCG/1 ML VIAL ONE; -IOHEXOL 350 MG/ML 100ML IJ ONE
== END | disposition home or self-care (01) ==
LOC: Rad HDHVI 10:41
PROVIDERS: ATTEND Internal Medicine Cardiovascular Disease
DX: I73.9 Peripheral vascular disease, unspecified (principal); I10 Essential (primary) hypertension
CPT/HCPCS: 93880

== ENCOUNTER → 2022-07-14 | Outpatient (CLI) | payer MEDICARE, MEDICAID ==
[~2022-07-14] MED LIST changes: +CYANOCOBALAMIN (B-12) 1000 MCG/1 ML VIAL IM ONE; +CYANOCOBALAMIN (B-12) 1000 MCG/1 ML VIAL ONE; +IOHEXOL 350 MG/ML 100ML IJ ONE; +VANCOMYCIN 1GM/250ML 250 ML IV ONE; +cefTRIAXone 1GM/50ML D5W 50 ML IV ONE
[2022-07-14 11:11] VITALS: BP 134/102
[2022-07-14 12:14] LABS: Basophils # (auto) 0 10 ^3/uL (0-0.2); Basophils % (auto) 0.6 % (0.0-2.0); Eosinophils # (auto) 0.2 10 ^3/uL (0-0.8); Eosinophils % (auto) 2.1 % (0.0-7.0); Hematocrit 52.3 % (41.0-53.0); Hemoglobin 16.3 g/dL (13.5-17.5); Lymphocytes # (auto) 2.7 10 ^3/uL (0.4-5.4); Lymphocytes % (auto) 34.1 % (10.0-50.0); Mean Corpuscular Hemoglobin 21.8 pg (28.0-32.0); Mean Corpuscular Hgb Conc. 31.1 g/dL (32.0-36.0); Mean Corpuscular Volume 70.2 fL (80.0-100.0); Monocytes # (auto) 0.6 10 ^3/uL (0-1.3); Neutrophils # (auto) 4.4 10 ^3/uL (1.6-8.6); Neutrophils % (auto) 55.2 % (37.0-80.0); Nucleated Red Blood Cells % 0.2 %; Red Blood Cells 7.45 10^6/uL (4.5-5.90); Red Cell Distribution Width 18.3 % (11.8-14.3)
[2022-07-14 12:31] LABS: Albumin 3.4 g/dL (3.4-5.0); Calcium 8.8 mg/dL (8.5-10.1); Potassium 3.8 mmol/L (3.5-5.1)
[2022-07-14 12:37] LABS: BUN/Creatinine Ratio 10.7; Bilirubin, Total 0.5 mg/dL (0.2-1.0); Total Protein 6.9 g/dL (6.4-8.2)
[2022-07-14 13:17] VITALS: BP 137/93
== END | disposition home or self-care (01) ==
LOC: Rad HDHVI 11:13
PROVIDERS: ATTEND Internal Medicine Cardiovascular Disease
DX: R94.4 Abnormal results of kidney function studies (principal); R68.84 Jaw pain; M27.2 Inflammatory conditions of jaws; R53.82 Chronic fatigue, unspecified
CPT/HCPCS: 36415; 70491; 80053; 85025; 96365; 96367; 96372; G0463; J0696; J3370; J3420; Q9967

== ENCOUNTER → 2022-08-19 | Outpatient (CLI) | payer MEDICARE, MEDICAID ==
[~2022-08-19] MED LIST changes: -IOHEXOL 350 MG/ML 100ML IJ ONE; +MULTIPLE VIT 10 ML IV ONE; +MVI in SODIUM CHLORIDE 0.9% 500 ML IVB ONE; -VANCOMYCIN 1GM/250ML 250 ML IV ONE; -cefTRIAXone 1GM/50ML D5W 50 ML IV ONE
[2022-08-19 11:21] LABS: Basophils # (auto) 0 10 ^3/uL (0-0.2); Basophils % (auto) 0.4 % (0.0-2.0); Eosinophils # (auto) 0.1 10 ^3/uL (0-0.8); Eosinophils % (auto) 1.5 % (0.0-7.0); Hematocrit 51.2 % (41.0-53.0); Hemoglobin 15.8 g/dL (13.5-17.5); Lymphocytes # (auto) 3.7 10 ^3/uL (0.4-5.4); Mean Corpuscular Hemoglobin 21.9 pg (28.0-32.0); Mean Corpuscular Hgb Conc. 30.9 g/dL (32.0-36.0); White Blood Cell 8.4 10^3/uL (4.4-10.8)
[2022-08-19 11:23] LABS: Lymphocytes % (auto) 43.6 % (10.0-50.0); Mean Corpuscular Volume 71.1 fL (80.0-100.0); Monocytes # (auto) 0.6 10 ^3/uL (0-1.3); Neutrophils % (auto) 47.5 % (37.0-80.0); Nucleated Red Blood Cells % 0.2 %; Red Blood Cells 7.21 10^6/uL (4.5-5.90); Red Cell Distribution Width 18.3 % (11.8-14.3)
[2022-08-19 11:27] LABS: Albumin 3.1 g/dL (3.4-5.0); BUN/Creatinine Ratio 11.5; Calcium 8.7 mg/dL (8.5-10.1); Magnesium 1.9 mg/dL (1.6-2.6); Potassium 4.4 mmol/L (3.5-5.1)
[2022-08-19 11:33] LABS: Bilirubin, Total 0.2 mg/dL (0.2-1.0)
[2022-08-19 13:40] VITALS: BP 124/86
[2022-08-19 16:25] LABS: Urine Blood Negative /uL (Negative); Urine Specific Gravity 1.025 (1.001-1.035)
== END | disposition home or self-care (01) ==
LOC: CHF HDHVI 10:13
PROVIDERS: ATTEND Internal Medicine Cardiovascular Disease
DX: I50.23 Acute on chronic systolic (congestive) heart failure (principal); E55.9 Vitamin D deficiency, unspecified
CPT/HCPCS: 36415; 71046; 80053; 80061; 81003; 82306; 82542; 82607; 83036; 83735; 83880; 85025; 93005; 96365; 96366; 96372; G0463

== ENCOUNTER → 2023-02-21 | Outpatient (CLI) | payer MEDICARE, MEDICAID ==
[~2023-02-21] VITALS: Ht 30.5 cm; Wt 0.5 kg
[~2023-02-21] MED LIST changes: -POTA8TAB2 PO; +POTA8TAB38 PO
[2023-02-21 13:55] VITALS: BP 136/86
[2023-02-21 16:58] VITALS: BP 144/101
== END | disposition home or self-care (01) ==
LOC: CHF HDHVI 13:51
PROVIDERS: ATTEND Internal Medicine Cardiovascular Disease
DX: R42 Dizziness and giddiness (principal); R53.1 Weakness; R53.83 Other fatigue; R56.9 Unspecified convulsions; I10 Essential (primary) hypertension
CPT/HCPCS: 96365; 96366; 96372; G0463; J3420; J7040

== ENCOUNTER → 2023-03-09 | Outpatient (CLI) | payer MEDICARE, MEDICAID ==
[~2023-03-09] MED LIST changes: -MULTIPLE VIT 10 ML IV ONE; -MVI in SODIUM CHLORIDE 0.9% 500 ML IVB ONE
[2023-03-09 11:05] VITALS: BP 116/85
[2023-03-09 11:26] VITALS: BP 112/88
== END | disposition home or self-care (01) ==
LOC: CHF HDHVI 10:25
PROVIDERS: ATTEND Internal Medicine Cardiovascular Disease
DX: D64.9 Anemia, unspecified (principal); I10 Essential (primary) hypertension; R56.9 Unspecified convulsions
CPT/HCPCS: 96372; G0463; J3420

== ENCOUNTER → 2023-04-05 | Outpatient (CLI) | payer MEDICARE, MEDICAID ==
[~2023-04-05] VITALS: Ht 182.9 cm; Wt 122.5 kg
[~2023-04-05] MED LIST changes: +ADENOSINE 103 MG in GIVE UN-DILUTED 0 ML IV ONE; +ADENOSINE 90 MG/30 ML INJ IV ONE
== END | disposition home or self-care (01) ==
LOC: Rad HDHVI 12:49
PROVIDERS: ATTEND Internal Medicine Cardiovascular Disease
DX: R07.89 Other chest pain (principal); I49.5 Sick sinus syndrome; I10 Essential (primary) hypertension; E11.9 Type 2 diabetes mellitus without complications; E78.00 Pure hypercholesterolemia, unspecified; R06.02 Shortness of breath; I25.2 Old myocardial infarction; Z95.0 Presence of cardiac pacemaker; Z82.49 Family history of ischemic heart disease and other diseases of the circulatory system
CPT/HCPCS: 78452; 93005; 96374; 96375; A9500; J0153; J3420

== ENCOUNTER → 2023-04-14 | Outpatient (CLI) | payer MEDICARE, MEDICAID ==
[~2023-04-14] MED LIST changes: -ADENOSINE 103 MG in GIVE UN-DILUTED 0 ML IV ONE; -ADENOSINE 90 MG/30 ML INJ IV ONE; -CYANOCOBALAMIN (B-12) 1000 MCG/1 ML VIAL IM ONE; -CYANOCOBALAMIN (B-12) 1000 MCG/1 ML VIAL ONE
== END | disposition home or self-care (01) ==
LOC: Rad HDHVI 08:06
PROVIDERS: ATTEND Internal Medicine Cardiovascular Disease
DX: I08.1 Rheumatic disorders of both mitral and tricuspid valves (principal); I10 Essential (primary) hypertension; R06.02 Shortness of breath
CPT/HCPCS: 93306

== ENCOUNTER → 2023-05-26 | Outpatient (CLI) | payer MEDICARE, MEDICAID ==
[~2023-05-26] MED LIST changes: +MVI in SODIUM CHLORIDE 0.9% 500 ML IVB ONE
[2023-05-26 10:56] VITALS: BP 131/93; PULSE 67; RESP 20; O2SAT 97
[2023-05-26 13:33] VITALS: BP 137/100; PULSE 65; RESP 18; O2SAT 98
== END | disposition home or self-care (01) ==
LOC: CHF HDHVI 10:45
PROVIDERS: ATTEND Internal Medicine Cardiovascular Disease
DX: E86.0 Dehydration (principal); I10 Essential (primary) hypertension
CPT/HCPCS: 96365; 96366; G0463; J3411; J3475; J7050; 96360; 96361

== ENCOUNTER → 2024-01-02 | Outpatient (CLI) | payer MEDICARE, MEDICAID ==
[~2024-01-02] MED LIST changes: -MVI in SODIUM CHLORIDE 0.9% 500 ML IVB ONE
[2024-01-02 11:15] VITALS: BP 135/87; PULSE 68; RESP 16; O2SAT 96
[2024-01-02] MEDS: levoFLOXacin 500MG 100 ML IV ONE ×2 (11:24→11:40)
[2024-01-02] MEDS: CYANOCOBALAMIN (B-12) 1000 MCG/1 ML VIAL ONE (12:27)
[2024-01-02] MEDS: CYANOCOBALAMIN (B-12) 1000 MCG/1 ML VIAL IM ONE (12:30)
[2024-01-02 12:44] VITALS: BP 125/92; PULSE 70; RESP 16; O2SAT 96
== END | disposition home or self-care (01) ==
LOC: Rad HDHVI 11:14
PROVIDERS: ATTEND Internal Medicine Cardiovascular Disease
DX: J18.9 Pneumonia, unspecified organism (principal); R06.02 Shortness of breath; R42 Dizziness and giddiness; R53.1 Weakness; E86.0 Dehydration; R53.83 Other fatigue; E78.00 Pure hypercholesterolemia, unspecified; E11.9 Type 2 diabetes mellitus without complications; I25.2 Old myocardial infarction; Z95.0 Presence of cardiac pacemaker
CPT/HCPCS: 71260; 96365; 96372; G0463; J1956; J3420; Q9967

== ENCOUNTER → 2024-01-09 | Outpatient (CLI) | payer MEDICARE, MEDICAID ==
[2024-01-09 12:03] LABS: Alanine Aminotransferase 22 U/L (7-40); Alkaline Phosphatase 119 U/L (46-116); Anion Gap 7 (5-15); Carbon Dioxide 26 mmol/L (20-30); Chloride 108 mmol/L (98-107); Sodium 141 mmol/L (136-145)
[2024-01-09 12:05] LABS: Blood Urea Nitrogen 6 mg/dL (9-23); Glucose 76 mg/dL (74-106); Triglycerides 155 mg/dL (< 150)
[2024-01-09 12:06] LABS: Albumin 3.9 g/dL (3.2-4.8); LDL Cholesterol 132 mg/dL (< 100)
[2024-01-09 12:07] LABS: Aspartate Aminotransferase 21 U/L (13-40); Bilirubin, Direct 0.1 mg/dL (<0.3); Cholesterol 191 mg/dL (< 200); HDL Cholesterol 43 mg/dL (40-59)
[2024-01-09 12:08] LABS: Total Protein 6.6 g/dL (5.7-8.2)
[2024-01-09 12:17] LABS: Bilirubin, Total 0.3 mg/dL (0.2-1.0)
[2024-01-09 12:35] LABS: Urine Blood Negative /uL (Negative); Urine Clarity Clear (Clear); Urine Color Straw (Yellow); Urine Protein, UAD Negative (Negative); Urine Specific Gravity 1.005 (1.001-1.035); Urine Urobilinogen Normal (Negative); Urine pH 5.5 (5.0-9.0)
== END | disposition home or self-care (01) ==
LOC: LAB 10:20
PROVIDERS: ATTEND Internal Medicine Cardiovascular Disease
DX: C61 Malignant neoplasm of prostate (principal); I10 Essential (primary) hypertension; E11.9 Type 2 diabetes mellitus without complications; E55.9 Vitamin D deficiency, unspecified; D51.3 Other dietary vitamin B12 deficiency anemia; D64.9 Anemia, unspecified; R00.2 Palpitations; R53.1 Weakness; R30.0 Dysuria
CPT/HCPCS: 36415; 80053; 80061; 80076; 81003; 83036; 84153; 84403; 84443; 85018

== ENCOUNTER → 2024-01-12 | Outpatient (CLI) | payer MEDICARE, MEDICAID ==
[2024-01-12] MEDS: CYANOCOBALAMIN (B-12) 1000 MCG/1 ML VIAL ONE (10:09)
[2024-01-12 10:10] VITALS: BP 115/90; PULSE 69; RESP 16; O2SAT 96
[2024-01-12] MEDS: CYANOCOBALAMIN (B-12) 1000 MCG/1 ML VIAL IM ONE (10:13)
[2024-01-12 10:18] VITALS: BP 122/87; PULSE 69; RESP 16; O2SAT 96
== END | disposition home or self-care (01) ==
LOC: Rad HDHVI 08:57
PROVIDERS: ATTEND Internal Medicine Cardiovascular Disease
DX: D51.8 Other vitamin B12 deficiency anemias (principal); R06.02 Shortness of breath; I10 Essential (primary) hypertension; I25.2 Old myocardial infarction; E11.9 Type 2 diabetes mellitus without complications; E78.00 Pure hypercholesterolemia, unspecified; C61 Malignant neoplasm of prostate; Z95.0 Presence of cardiac pacemaker
CPT/HCPCS: 93306; 96372; G0463; J3420

== ENCOUNTER → 2024-02-01 | Outpatient (CLI) | payer MEDICARE, MEDICAID ==
[2024-02-01 14:35] LABS: Basophils # (auto) 0.1 10 ^3/uL (0-0.2); Eosinophils # (auto) 0.2 10 ^3/uL (0-0.8); Mean Corpuscular Hgb Conc. 30.9 g/dL (32.0-36.0); Nucleated Red Blood Cells % 0.1 %
[2024-02-01 14:37] LABS: Basophils % (auto) 0.7 % (0.0-2.0); Eosinophils % (auto) 2.1 % (0.0-7.0); Hematocrit 49.6 % (41.0-53.0); Hemoglobin 15.3 g/dL (13.5-17.5); Lymphocytes # (auto) 3.1 10 ^3/uL (0.4-5.4); Lymphocytes % (auto) 34.9 % (10.0-50.0); Mean Corpuscular Hemoglobin 20.9 pg (28.0-32.0); Mean Corpuscular Volume 67.6 fL (80.0-100.0); Neutrophils # (auto) 4.5 10 ^3/uL (1.6-8.6); Neutrophils % (auto) 51.3 % (37.0-80.0); Red Blood Cells 7.33 10^6/uL (4.5-5.90); Red Cell Distribution Width 20.2 % (11.8-14.3); White Blood Cell 8.8 10^3/uL (4.4-10.8)
== END | disposition home or self-care (01) ==
LOC: LAB 14:14
PROVIDERS: ATTEND Internal Medicine Cardiovascular Disease
DX: D64.9 Anemia, unspecified (principal)
CPT/HCPCS: 36415; 85025

== ENCOUNTER → 2024-04-03 | Outpatient (CLI) | payer MEDICARE, MEDICAID ==
[2024-04-03 12:42] LABS: Eosinophils # (auto) 0.1 10 ^3/uL (0-0.8); Eosinophils % (auto) 0.9 % (0.0-7.0); Hemoglobin 14.9 g/dL (13.5-17.5); Nucleated Red Blood Cells % 0.1 %
[2024-04-03 12:44] LABS: Basophils # (auto) 0.2 10 ^3/uL (0-0.2); Basophils % (auto) 1.2 % (0.0-2.0); Hematocrit 47.3 % (41.0-53.0); Lymphocytes # (auto) 2.8 10 ^3/uL (0.4-5.4); Lymphocytes % (auto) 21.7 % (10.0-50.0); Mean Corpuscular Hgb Conc. 31.5 g/dL (32.0-36.0); Mean Corpuscular Volume 66.6 fL (80.0-100.0); Monocytes # (auto) 1.1 10 ^3/uL (0-1.3); Monocytes % (auto) 8.8 % (0.0-12.0); Neutrophils # (auto) 8.7 10 ^3/uL (1.6-8.6); Neutrophils % (auto) 67.4 % (37.0-80.0); Red Blood Cells 7.11 10^6/uL (4.5-5.90); Red Cell Distribution Width 18.1 % (11.8-14.3); White Blood Cell 12.9 10^3/uL (4.4-10.8)
[2024-04-03 14:09] LABS: Alanine Aminotransferase 19 U/L (7-40); Alkaline Phosphatase 126 U/L (46-116); Anion Gap 6 (5-15); Aspartate Aminotransferase 11 U/L (13-40); Bilirubin, Total 0.5 mg/dL (0.2-1.0); Blood Urea Nitrogen 13 mg/dL (9-23); Calcium 9.4 mg/dL (8.7-10.4); Carbon Dioxide 28 mmol/L (20-30); Chloride 108 mmol/L (98-107); Cholesterol 168 mg/dL (< 200); Glucose 81 mg/dL (74-106); HDL Cholesterol 52 mg/dL (40-59); LDL Cholesterol 111 mg/dL (< 100); Potassium 4.2 mmol/L (3.5-5.1); Sodium 142 mmol/L (136-145); Total Protein 6.5 g/dL (5.7-8.2); Triglycerides 96 mg/dL (< 150)
== END | disposition home or self-care (01) ==
LOC: LAB 12:30
PROVIDERS: ATTEND Internal Medicine Hematology & Oncology
DX: I10 Essential (primary) hypertension (principal); J44.9 Chronic obstructive pulmonary disease, unspecified; E78.5 Hyperlipidemia, unspecified; E11.42 Type 2 diabetes mellitus with diabetic polyneuropathy; D56.1 Beta thalassemia
CPT/HCPCS: 36415; 80053; 80061; 83036; 84439; 84443; 85025

== ENCOUNTER 2024-05-12 01:08 | Inpatient (IN) | payer MEDICARE, MEDICAID ==
[~2024-05-12] VITALS: Ht 182.9 cm; Wt 117.1 kg
[2024-05-12] VITALS (8 sets, daily range): BP systolic 118–130; BP diastolic 78–98; PULSE 64–81; RESP 16–20; TEMP 98.3–98.5; O2SAT 94–100
[2024-05-12 01:44] LABS: Basophils # (auto) 0.1 10 ^3/uL (0-0.2); Eosinophils # (auto) 0.1 10 ^3/uL (0-0.8); Eosinophils % (auto) 0.6 % (0.0-7.0); Lymphocytes # (auto) 4.8 10 ^3/uL (0.4-5.4)
[2024-05-12 01:47] LABS: Basophils % (auto) 0.5 % (0.0-2.0); Hematocrit 52.3 % (41.0-53.0); Hemoglobin 16.9 g/dL (13.5-17.5); Lymphocytes % (auto) 29.5 % (10.0-50.0); Mean Corpuscular Hemoglobin 22.1 pg (28.0-32.0); Mean Corpuscular Hgb Conc. 32.3 g/dL (32.0-36.0); Mean Corpuscular Volume 68.6 fL (80.0-100.0); Monocytes % (auto) 12.6 % (0.0-12.0); Neutrophils # (auto) 9.1 10 ^3/uL (1.6-8.6); Neutrophils % (auto) 56.8 % (37.0-80.0); Nucleated Red Blood Cells % 0.1 %; Platelet Count (auto) 219 10^3/uL (140-450); Red Blood Cells 7.63 10^6/uL (4.5-5.90); Red Cell Distribution Width 17.8 % (11.8-14.3); White Blood Cell 16.1 10^3/uL (4.4-10.8)
[2024-05-12 01:51] LABS: Alanine Aminotransferase 23 U/L (7-40); Albumin 4.4 g/dL (3.2-4.8); Alkaline Phosphatase 141 U/L (46-116); Anion Gap 8 (5-15); Aspartate Aminotransferase 21 U/L (13-40); BUN/Creatinine Ratio 7.2 (10.0-20.0); Blood Urea Nitrogen 11 mg/dL (9-23); Calcium 9.5 mg/dL (8.7-10.4); Carbon Dioxide 25 mmol/L (20-30); Chloride 106 mmol/L (98-107); Glucose 100 mg/dL (74-106); Magnesium 2.3 mg/dL (1.6-2.6); Potassium 4.1 mmol/L (3.5-5.1); Sodium 139 mmol/L (136-145)
[2024-05-12 01:52] LABS: Bilirubin, Total 0.4 mg/dL (0.2-1.0); Total Protein 7.4 g/dL (5.7-8.2)
[2024-05-12] MEDS: ONDANSETRON HCL 4 MG/2 ML VIAL IV ONE ×2 (01:56→04:52)
[2024-05-12] MEDS: HYDROmorphone HCL 2 MG/ML VL/or syr IV ONE ×2 (01:56→03:55)
[2024-05-12 02:07] LABS: INR 1.1 (0.9-1.15); Prothrombin Time 11.6 sec (9.3-11.8)
[2024-05-12] MEDS: FUROSEMIDE 40 MG/4 ML VIAL IV ONE (04:44)
[2024-05-12] MEDS: cefTRIAXone 1GM/50ML D5W 50 ML IV ONE (04:44)
[2024-05-12] MEDS: NITROGLYCERIN 2% OINT 1GM PKG TD ONE (04:47)
[2024-05-12 04:50] LABS: Partial Thromboplastin Time 27.8 SEC (24.5-34.5)
[2024-05-12 05:47] LABS: COVID19 ANTIGEN SOFIA FIA NEGATIVE (NEGATIVE)
[2024-05-12 05:48] LABS: Rapid Influenza A Negative (Negative); Rapid Influenza B Negative (Negative)
[2024-05-12 05:55] LABS: Urine Bacteria None Seen /hpf (None Seen); Urine WBC None Seen /hpf (0 - 3)
[2024-05-12] MEDS ORDERED: ACETAMINOPHEN 325 MG TAB PO PRN (06:00)
[2024-05-12] MEDS ORDERED: HYDROmorphone HCL 2 MG/ML VL/or syr IV PRN (06:00)
[2024-05-12] MEDS ORDERED: ONDANSETRON HCL 4 MG/2 ML VIAL IV PRN (06:00)
[2024-05-12] MEDS ORDERED: DOCUSATE SOD 100 MG CAP PO PRN (06:00)
[2024-05-12 06:24] LABS: Urine Blood Negative /uL (Negative); Urine Clarity Clear (Clear); Urine Color Light-Yellow (Yellow); Urine Protein, UAD Negative (Negative); Urine Specific Gravity 1.012 (1.001-1.035); Urine Urobilinogen Normal (Negative)
[2024-05-12] MEDS: AZITHROMYCIN 500MG/ 250ML 250 ML IV ONE (06:25)
[2024-05-12] MEDS: SODIUM CHLOR 0.9% PF (SALINE LOCK) 10ML VIAL/SYR IV SCH (06:26)
[2024-05-12 06:34] LABS: Alanine Aminotransferase 17 U/L (7-40); Albumin 4.1 g/dL (3.2-4.8); Alkaline Phosphatase 128 U/L (46-116); Anion Gap 9 (5-15); Aspartate Aminotransferase 25 U/L (13-40); BUN/Creatinine Ratio 8.1 (10.0-20.0); Bilirubin, Total 0.3 mg/dL (0.2-1.0); Blood Urea Nitrogen 10 mg/dL (9-23); Calcium 9.4 mg/dL (8.7-10.4); Carbon Dioxide 18 mmol/L (20-30); Chloride 109 mmol/L (98-107); Glucose 114 mg/dL (74-106); Potassium 4.2 mmol/L (3.5-5.1); Sodium 136 mmol/L (136-145)
[2024-05-12] MEDS ORDERED: NITROGLYCERIN 0.4 MG SL TAB SL PRN (06:45)
[2024-05-12] MEDS: diphenhdrAMINE HCL 50 MG/1 ML VL IV PRN (07:53)
[2024-05-12] MEDS: levoFLOXacin 500MG 100 ML IV ONE (09:19)
[2024-05-12] MEDS: ASPirin 81 mg TAB PO SCH (10:00)
[2024-05-12] MEDS ORDERED: RIVAROXABAN 20 MG PO SCH (10:00)
[2024-05-12] MEDS: FUROSEMIDE 40 MG/4 ML VIAL IV SCH (11:59)
[2024-05-12] MEDS: levETIRAcetam 1000 mg/100ml 100 ML IV SCH (11:59)
[2024-05-12] MEDS ORDERED: APIX5TAB PO (14:21)
[2024-05-12] MEDS ORDERED: CLOP75TA70 PO (14:21)
[2024-05-12] MEDS ORDERED: PREG100C PO (14:38)
[2024-05-12] MEDS ORDERED: FLEC100T PO (14:38)
[2024-05-12] MEDS ORDERED: IVAB1.7T PO (14:38)
[2024-05-12] MEDS ORDERED: POTA-36 PO (14:38)
[2024-05-12] MEDS ORDERED: KEP500T PO (14:38)
[2024-05-12] MEDS ORDERED: MAGN400T40 PO (14:38)
[2024-05-12] MEDS ORDERED: CARB200T4 PO (14:38)
[2024-05-12] MEDS ORDERED: METO1TAB9 PO (14:38)
[2024-05-12] MEDS ORDERED: CLON0.2D6 PO (14:38)
[2024-05-12] MEDS ORDERED: AMLO1TAB22 PO (14:38)
[2024-05-12] MEDS: RIVAROXABAN 20 MG TAB PO SCH (17:37)
[2024-05-12] MEDS: ATORVASTATIN 20 MG TAB PO SCH (21:55)
[2024-05-13] VITALS (9 sets, daily range): BP systolic 98–132; BP diastolic 66–93; PULSE 68–92; RESP 14–20; TEMP 97.6–98.3; O2SAT 94–99
[2024-05-13] MEDS: cefTRIAXone 1GM/50ML D5W 50 ML IV SCH (05:36)
[2024-05-13 06:00] LABS: Alanine Aminotransferase 18 U/L (7-40); Albumin 3.8 g/dL (3.2-4.8); Alkaline Phosphatase 105 U/L (46-116); Anion Gap 6 (5-15); Aspartate Aminotransferase 15 U/L (13-40); BUN/Creatinine Ratio 10.8 (10.0-20.0); Bilirubin, Total 0.5 mg/dL (0.2-1.0); Blood Urea Nitrogen 15 mg/dL (9-23); Calcium 9.2 mg/dL (8.7-10.4); Carbon Dioxide 29 mmol/L (20-30); Chloride 104 mmol/L (98-107); Glucose 107 mg/dL (74-106); Potassium 3.6 mmol/L (3.5-5.1); Sodium 139 mmol/L (136-145)
[2024-05-13] MEDS ORDERED: AZITHROMYCIN 500MG/ 250ML 250 ML IV SCH (06:00)
[2024-05-13 06:01] LABS: Total Protein 6.4 g/dL (5.7-8.2)
[2024-05-13 07:16] LABS: Basophils # (auto) 0.1 10 ^3/uL (0-0.2); Basophils % (auto) 0.5 % (0.0-2.0); Red Blood Cells 7.04 10^6/uL (4.5-5.90)
[2024-05-13 07:18] LABS: Eosinophils # (auto) 0.4 10 ^3/uL (0-0.8); Hematocrit 48.1 % (41.0-53.0); Hemoglobin 15.3 g/dL (13.5-17.5); Lymphocytes % (auto) 24.7 % (10.0-50.0); Mean Corpuscular Hemoglobin 21.7 pg (28.0-32.0); Mean Corpuscular Hgb Conc. 31.8 g/dL (32.0-36.0); Mean Corpuscular Volume 68.2 fL (80.0-100.0); Monocytes # (auto) 1.6 10 ^3/uL (0-1.3); Neutrophils # (auto) 7.2 10 ^3/uL (1.6-8.6); Neutrophils % (auto) 58.8 % (37.0-80.0); Platelet Count (auto) 170 10^3/uL (140-450); Red Cell Distribution Width 17.8 % (11.8-14.3); White Blood Cell 12.3 10^3/uL (4.4-10.8)
[2024-05-13] MEDS: FLECAINIDE ACETATE 50 MG TAB PO ONE (10:15)
[2024-05-13] MEDS ORDERED: LORazepam 0.5 MG TAB PO PRN (10:15)
[2024-05-13] MEDS: levoFLOXacin 500MG 100 ML IV SCH (11:43)
[2024-05-13] MEDS: levETIRAcetam 500 MG TAB PO ONE (11:45)
[2024-05-13] MEDS: MAGNESIUM OXIDE 400 MG TAB PO ONE (11:46)
[2024-05-13] MEDS: POTASSIUM CHL 10 Meq TABLET PO ONE (11:46)
[2024-05-13] MEDS: amLODIPine BESYLATE 5 MG TAB PO ONE (11:46)
[2024-05-13] MEDS: CLOPIDOGREL BISULFATE 75 MG TAB PO ONE (11:47)
[2024-05-13] MEDS: carBAMazepine 200 MG TAB PO SCH (17:45)
[2024-05-13] MEDS: levETIRAcetam 500 MG TAB PO SCH (21:39)
[2024-05-13] MEDS: IVABRADINE 5 MG TAB PO SCH (21:40)
[2024-05-13] MEDS: METOPROLOL SUCCINATE XL 50 MG TAB PO SCH (21:43)
[2024-05-13] MEDS: PREGABALIN 25 MG CAP PO SCH (21:43)
[2024-05-14 00:48] VITALS: BP 120/86; PULSE 72; RESP 18; TEMP 98.3; O2SAT 98
[2024-05-14 05:00] VITALS: BP 129/97; PULSE 72; RESP 17; TEMP 97.6; O2SAT 100
[2024-05-14 07:50] VITALS: RESP 16
[2024-05-14 08:00] VITALS: PULSE 70
[2024-05-14 08:52] VITALS: BP 127/90; PULSE 61; RESP 19; TEMP 97.7; O2SAT 95
[2024-05-14] MEDS: FLECAINIDE ACETATE 50 MG TAB PO SCH (09:28)
[2024-05-14] MEDS: cloNIDine HCL 0.1 MG TAB PO ONE (09:28)
[2024-05-14] MEDS: POTASSIUM CHL 10 Meq TABLET PO SCH (09:30)
[2024-05-14] MEDS: MAGNESIUM OXIDE 400 MG TAB PO SCH (09:30)
[2024-05-14] MEDS: CLOPIDOGREL BISULFATE 75 MG TAB PO SCH (09:31)
[2024-05-14] MEDS: amLODIPine BESYLATE 5 MG TAB PO SCH (09:31)
[2024-05-14 13:38] VITALS: BP 118/87; PULSE 71; RESP 19; TEMP 97.8; O2SAT 96
== END 2024-05-14 12:44 | disposition left against medical advice (07) | DRG 871 ==
LOC: ER 01:08 → TELE 06:35 → TELE-E-ADS 08:08
PROVIDERS: ADMIT Nurse Practitioner Family; ATTEND Internal Medicine Cardiovascular Disease
DX: A41.9 Sepsis, unspecified organism (principal); J18.9 Pneumonia, unspecified organism; J44.0 Chronic obstructive pulmonary disease with (acute) lower respiratory infection; I13.0 Hypertensive heart and chronic kidney disease with heart failure and stage 1 through stage 4 chronic kidney disease, or unspecified chronic kidney disease; N17.9 Acute kidney failure, unspecified; J44.1 Chronic obstructive pulmonary disease with (acute) exacerbation; Z20.822 Contact with and (suspected) exposure to COVID-19; I48.91 Unspecified atrial fibrillation; I50.9 Heart failure, unspecified; R56.9 Unspecified convulsions; D45 Polycythemia vera; Z53.29 Procedure and treatment not carried out because of patient's decision for other reasons; I25.10 Atherosclerotic heart disease of native coronary artery without angina pectoris; E78.5 Hyperlipidemia, unspecified; N18.9 Chronic kidney disease, unspecified; Z86.718 Personal history of other venous thrombosis and embolism; Z95.0 Presence of cardiac pacemaker; I25.2 Old myocardial infarction; Z88.5 Allergy status to narcotic agent
CPT/HCPCS: 36415; 71045; 80053; 81001; 83735; 83880; 84484; 85025; 85379; 85610; 85730; 87426; 87804; 93005; 96365; 96375; 96376; 99291; G0378; J1956; J2405

== ENCOUNTER → 2024-05-28 | Outpatient (CLI) | payer MEDICARE, MEDICAID ==
[~2024-05-28] MED LIST changes: +AMLO1TAB22 PO; +APIX5TAB PO; +CARB200T4 PO; +CLON0.2D6 PO; +CLOP75TA70 PO; +IVAB1.7T PO; +KEP500T PO; +METO1TAB9 PO; +POTA-36 PO; +PREG100C PO
[2024-05-28 12:00] VITALS: BP 128/100; PULSE 76; RESP 20; O2SAT 96
[2024-05-28] MEDS: CYANOCOBALAMIN (B-12) 1000 MCG/1 ML VIAL IM ONE (12:00)
[2024-05-28] MEDS: MEROPENEM 1GM IVPB 50 ML IV ONE ×2 (12:00→13:00)
[2024-05-28] MEDS: BUMETANIDE 2.5mg/10ml (0.25 mg/ml) INJ IV ONE (12:05)
[2024-05-28] MEDS: MEROPENEM 1GM IVPB 100 ML IV ONE (12:16)
[2024-05-28] MEDS: BUMETANIDE INJECTION 10 ML ONE (12:16)
[2024-05-28 14:13] VITALS: BP 136/94; PULSE 80; RESP 20; O2SAT 96
[2024-05-28] MEDS: CYANOCOBALAMIN (B-12) 1000 MCG/1 ML VIAL ONE (14:20)
== END | disposition home or self-care (01) ==
LOC: CHF HDHVI 12:01
PROVIDERS: ATTEND Internal Medicine Cardiovascular Disease
DX: J06.9 Acute upper respiratory infection, unspecified (principal); J44.9 Chronic obstructive pulmonary disease, unspecified; I13.0 Hypertensive heart and chronic kidney disease with heart failure and stage 1 through stage 4 chronic kidney disease, or unspecified chronic kidney disease; E11.22 Type 2 diabetes mellitus with diabetic chronic kidney disease; N18.9 Chronic kidney disease, unspecified; I50.9 Heart failure, unspecified; I25.2 Old myocardial infarction; I48.91 Unspecified atrial fibrillation; E11.42 Type 2 diabetes mellitus with diabetic polyneuropathy; Z95.0 Presence of cardiac pacemaker
CPT/HCPCS: 96365; 96366; 96372; 96375; G0463; J2185; J3420

== ENCOUNTER → 2024-06-06 | Outpatient (CLI) | payer MEDICARE, MEDICAID ==
[~2024-06-06] MED LIST changes: +ALIR75IN2 SC; +CARB200T PO; +POTA-215 PO; +TORS20TA19 PO; +TRIA37.586 PO; +VERA240C2 PO
[2024-06-06 09:05] VITALS: BP 114/82; PULSE 70; RESP 16; O2SAT 98
[2024-06-06 09:20] VITALS: BP 114/82; PULSE 70; RESP 16; O2SAT 98
== END | disposition home or self-care (01) ==
LOC: Rad HDHVI 09:10
PROVIDERS: ATTEND Internal Medicine Cardiovascular Disease
DX: Z01.818 Encounter for other preprocedural examination (principal); R07.9 Chest pain, unspecified
CPT/HCPCS: 71046; G0463

== ENCOUNTER 2024-06-07 07:16 | Day surgery (SDC) | payer MEDICARE, MEDICAID ==
[2024-06-06 11:12] LABS: Basophils # (auto) 0.1 10 ^3/uL (0-0.2); Eosinophils # (auto) 0.2 10 ^3/uL (0-0.8); Hematocrit 51.8 % (41.0-53.0); Hemoglobin 16.8 g/dL (13.5-17.5); Mean Corpuscular Hgb Conc. 32.5 g/dL (32.0-36.0); Neutrophils # (auto) 5.1 10 ^3/uL (1.6-8.6); Platelet Count (auto) 201 10^3/uL (140-450)
[2024-06-06 11:14] LABS: Eosinophils % (auto) 2.1 % (0.0-7.0); Lymphocytes # (auto) 3.1 10 ^3/uL (0.4-5.4); Lymphocytes % (auto) 32.4 % (10.0-50.0); Mean Corpuscular Volume 67.7 fL (80.0-100.0); Monocytes # (auto) 1.1 10 ^3/uL (0-1.3); Monocytes % (auto) 11.8 % (0.0-12.0); Neutrophils % (auto) 52.7 % (37.0-80.0); Nucleated Red Blood Cells % 0.2 %; Red Blood Cells 7.65 10^6/uL (4.5-5.90); White Blood Cell 9.7 10^3/uL (4.4-10.8)
[2024-06-06 11:27] LABS: INR 1.03 (0.9-1.15); Partial Thromboplastin Time 25.9 SEC (24.5-34.5); Prothrombin Time 10.9 sec (9.3-11.8)
[2024-06-06 11:45] LABS: Chloride 106 mmol/L (98-107); Potassium 3.8 mmol/L (3.5-5.1); Sodium 142 mmol/L (136-145)
[2024-06-06 11:46] LABS: Anion Gap 7 (5-15); Carbon Dioxide 29 mmol/L (20-30)
[2024-06-06 11:47] LABS: Calcium 9.5 mg/dL (8.7-10.4)
[2024-06-06 11:52] LABS: Blood Urea Nitrogen 12 mg/dL (9-23); Glucose 74 mg/dL (74-106)
[~2024-06-07] VITALS: Ht 182.9 cm; Wt 116.6 kg
[2024-06-07] VITALS (8 sets, daily range): BP systolic 114–147; BP diastolic 78–106; PULSE 65–72; RESP 11–19; TEMP 97.8; O2SAT 93–100
[~2024-06-07 07:16] MED LIST changes: -ALIR1INJ3 SC; -AMLO1TAB22 PO; -ASPI1TAB20 PO; -CARB200T4 PO; -CLON0.2D6 PO; -DEXL60CA4 PO; -KEP500T PO; -METO100T87 PO; -POM INH; -POTA-215 PO; -POTA-36 PO; -RIVA20TA PO; -TORS20TA19 PO; -VERA240C2 PO; -[UNRECOGNIZED DRUG - CODE] BU
[2024-06-07] MEDS ORDERED: HEPARIN IN NS 1000Units/500mL 1,500 ML ONE (07:32)
[2024-06-07] MEDS ORDERED: IODIXANOL 320MG/ML 100ML BTL IV ONE (07:32)
[2024-06-07] MEDS ORDERED: ANGIOMAX 250 MG VIAL IV ONE (08:35)
[2024-06-07] MEDS ORDERED: fentaNYL CITRATE 100 MCG/2 ML VL ONE (08:35)
[2024-06-07] MEDS ORDERED: MIDAZOLAM HCL 2MG/2ML 2ml VIAL (1mg/ml) ONE (08:35)
[2024-06-07] MEDS ORDERED: SODIUM CHL 0.9% 0 ML ONE (08:36)
[2024-06-07] MEDS ORDERED: LIDOCAINE 2%HCL (LOCAL ANESTH.) INJ 20ML MDV ONE (08:36)
== END 2024-06-07 11:55 | disposition home or self-care (01) ==
LOC: CATH 07:16
PROVIDERS: ATTEND Internal Medicine Cardiovascular Disease
DX: I48.0 Paroxysmal atrial fibrillation (principal); I25.10 Atherosclerotic heart disease of native coronary artery without angina pectoris; I27.20 Pulmonary hypertension, unspecified; I11.0 Hypertensive heart disease with heart failure; I50.9 Heart failure, unspecified; E78.5 Hyperlipidemia, unspecified; J44.9 Chronic obstructive pulmonary disease, unspecified; G89.4 Chronic pain syndrome; M19.90 Unspecified osteoarthritis, unspecified site; Z96.82 Presence of neurostimulator; Z79.899 Other long term (current) drug therapy; Z95.0 Presence of cardiac pacemaker; Z88.1 Allergy status to other antibiotic agents; Z88.6 Allergy status to analgesic agent
CPT/HCPCS: 93460; C1760; C1769; C1894; J1644; J2250; J3010; Q9967; 36415; 80048; 85025; 85610; 85730; 99152

== ENCOUNTER → 2024-07-17 | Outpatient (CLI) | payer MEDICARE, MEDICAID ==
[2024-07-17 12:23] VITALS: BP 114/89; PULSE 70; RESP 18; O2SAT 93
[2024-07-17 12:49] VITALS: BP 105/83; PULSE 69; RESP 18; O2SAT 98
[2024-07-17] MEDS: CYANOCOBALAMIN (B-12) 1000 MCG/1 ML VIAL IM ONE (12:51)
[2024-07-17] MEDS: CYANOCOBALAMIN (B-12) 1000 MCG/1 ML VIAL ONE (12:51)
--- NOTE | 2024-07-17 13:15 | DVH ---
XY CHEST TWO VIEWS ROUTINE CLINICAL HISTORY: SOB COMPARISON: XY CHEST TWO VIEWS ROUTINE on DOS: 06/06/24, CXR2 on DOS: 08/19/22 TECHNIQUE: Frontal and lateral view of the chest was obtained FINDINGS: Lines and Tubes: None sided cardiac pacemaker. Lungs: No focal consolidation. Pleura: No effusion. No pneumothorax. Cardiomediastinal contours: Unremarkable Bones: No acute osseous abnormality. IMPRESSION: 1. No radiographic evidence of acute cardiopulmonary disease. HS:Y
== END | disposition home or self-care (01) ==
LOC: CHF HDHVI 12:20
PROVIDERS: ATTEND Internal Medicine Cardiovascular Disease
DX: I11.0 Hypertensive heart disease with heart failure (principal); I50.43 Acute on chronic combined systolic (congestive) and diastolic (congestive) heart failure; R06.02 Shortness of breath; D64.9 Anemia, unspecified
CPT/HCPCS: 71046; 96372; G0463; J3420

== ENCOUNTER → 2024-08-28 | Outpatient (CLI) | payer MEDICARE, MEDICAID ==
[2024-08-28 10:40] VITALS: BP 138/85; PULSE 72; RESP 1; O2SAT 97
--- NOTE | 2024-08-28 11:21 | DVH ---
EXAM: CHEST TWO VIEWS ROUTINE CLINICAL HISTORY: SOB COMPARISON: XY CHEST TWO VIEWS ROUTINE on DOS: 07/17/24, XY CHEST TWO VIEWS ROUTINE on DOS: 06/06/24 TECHNIQUE: Frontal and lateral view of the chest was obtained FINDINGS: Lines and Tubes: There is a multi lead pacer in the left chest wall. Lumbar quadrant well Lungs: No focal consolidation. Pleura: No effusion. No pneumothorax. Cardiomediastinal contours: Unremarkable Pulmonary vasculature: Within normal limits. Bones: No acute osseous abnormality. There are neurostimulator leads in the posterior thoracic spinal canal. IMPRESSION: 1. No acute cardiopulmonary disease. HS:Y
[2024-08-28 11:30] VITALS: BP 134/82; PULSE 71; RESP 18; O2SAT 97
== END | disposition home or self-care (01) ==
LOC: CHF HDHVI 10:27
PROVIDERS: ATTEND Internal Medicine Cardiovascular Disease
DX: R06.02 Shortness of breath (principal); R05.9 Cough, unspecified
CPT/HCPCS: 71046; G0463

== ENCOUNTER → 2024-12-21 | Outpatient (CLI) | payer MEDICARE, MEDICAID ==
[2024-12-21 11:50] VITALS: BP 125/93; PULSE 75; RESP 16; O2SAT 95
[2024-12-21] MEDS: MULTIPLE VIT 10 ML IV ONE (12:05)
[2024-12-21] MEDS: ONDANSETRON HCL 4 MG/2 ML VIAL IV ONE (12:14)
[2024-12-21] MEDS: ONDANSETRON HCL 4 MG/2 ML VIAL ONE (12:14)
[2024-12-21] MEDS: MVI in SODIUM CHLORIDE 0.9% 500 ML IVB ONE (12:15)
[2024-12-21] MEDS: CYANOCOBALAMIN (B-12) 1000 MCG/1 ML VIAL ONE (14:17)
[2024-12-21] MEDS: CYANOCOBALAMIN (B-12) 1000 MCG/1 ML VIAL IM ONE (14:19)
[2024-12-21 14:23] VITALS: BP 124/76; PULSE 74; RESP 16; O2SAT 95
== END | disposition home or self-care (01) ==
LOC: CHF HDHVI 11:31
PROVIDERS: ATTEND Internal Medicine Cardiovascular Disease
DX: E86.0 Dehydration (principal); D64.9 Anemia, unspecified; E53.8 Deficiency of other specified B group vitamins; I13.0 Hypertensive heart and chronic kidney disease with heart failure and stage 1 through stage 4 chronic kidney disease, or unspecified chronic kidney disease; I50.43 Acute on chronic combined systolic (congestive) and diastolic (congestive) heart failure; N18.9 Chronic kidney disease, unspecified; E11.22 Type 2 diabetes mellitus with diabetic chronic kidney disease; I25.10 Atherosclerotic heart disease of native coronary artery without angina pectoris; J44.9 Chronic obstructive pulmonary disease, unspecified; E78.5 Hyperlipidemia, unspecified; I48.0 Paroxysmal atrial fibrillation; M19.90 Unspecified osteoarthritis, unspecified site; I25.2 Old myocardial infarction; E11.42 Type 2 diabetes mellitus with diabetic polyneuropathy; R11.0 Nausea; Z95.0 Presence of cardiac pacemaker; Z79.899 Other long term (current) drug therapy
CPT/HCPCS: 96365; 96366; 96372; 96375; G0463; J2405; J3411; J3420; J3475; J7040; 96360; 96361

== ENCOUNTER 2025-02-22 11:25 | Outpatient (CLI) | payer MEDICARE, MEDICAID ==
[2025-02-22 11:30] VITALS: BP 118/87; PULSE 66; RESP 18; O2SAT 94
[2025-02-22] MEDS: MULTIPLE VIT 10 ML IV ONE (11:40)
[2025-02-22] MEDS: ONDANSETRON HCL 4 MG/2 ML VIAL ONE (11:40)
[2025-02-22] MEDS: CYANOCOBALAMIN (B-12) 1000 MCG/1 ML VIAL ONE (11:40)
[2025-02-22] MEDS: ONDANSETRON HCL 4 MG/2 ML VIAL IV ONE (12:13)
[2025-02-22] MEDS: MVI in SODIUM CHLORIDE 0.9% 500 ML IVB ONE (12:18)
[2025-02-22] MEDS: CYANOCOBALAMIN (B-12) 1000 MCG/1 ML VIAL IM ONE (14:26)
== END 2025-02-22 17:00 | disposition home or self-care (01) ==
LOC: CHF HDHVI 11:25
PROVIDERS: ATTEND Internal Medicine Cardiovascular Disease
DX: E86.0 Dehydration (principal); R11.0 Nausea; R53.83 Other fatigue; D64.9 Anemia, unspecified; I13.0 Hypertensive heart and chronic kidney disease with heart failure and stage 1 through stage 4 chronic kidney disease, or unspecified chronic kidney disease; E11.22 Type 2 diabetes mellitus with diabetic chronic kidney disease; I50.43 Acute on chronic combined systolic (congestive) and diastolic (congestive) heart failure; N18.9 Chronic kidney disease, unspecified; I25.10 Atherosclerotic heart disease of native coronary artery without angina pectoris; I25.2 Old myocardial infarction; I48.0 Paroxysmal atrial fibrillation; J44.9 Chronic obstructive pulmonary disease, unspecified; E11.42 Type 2 diabetes mellitus with diabetic polyneuropathy; E78.5 Hyperlipidemia, unspecified; Z79.899 Other long term (current) drug therapy; Z95.0 Presence of cardiac pacemaker
CPT/HCPCS: 96365; 96366; 96372; 96375; G0463; J2405; J3411; J3420; J3475; J7040; 96360; 96361

== ENCOUNTER 2025-03-02 14:53 | Emergency (ER) | payer MEDICARE, MEDICAID ==
[~2025-03-02] VITALS: Ht 182.9 cm; Wt 105.3 kg
[2025-03-02 15:24] VITALS: BP 114/84; RESP 18; TEMP 98.4; O2SAT 95
[2025-03-02 15:27] VITALS: PULSE 76
--- NOTE | 2025-03-02 15:32 | ED.PDOC ---
HPI Comments This is a 59 year old male presenting to the ED with chief complaint of syncope. 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 Patient relays that the area was hot, but he was well hydrated for the day. Patient states that he feels much better now and has no further complaints. Patient notes he receives infusions at [facility] ([place]) due to having Polycythemia Vera. Patient denies any chest pain, SOB, dizziness, N/V, numbness, weakness, or headache. Chief Complaint: Syncope Time Seen by MD: 15:29 Primary Care Provider: CLAUDETTE Reviewed Notes: Nurses Notes, Medications, Allergies Allergies: Coded Allergies: Morphine (Unverified Allergy, Intermediate, HIVES, 07/30/19) Azithromycin (Verified Adverse Reaction, Intermediate, BURNING RASH, 05/12/24) Home Meds Reported Medications Hydrochlorothiazide W/Triamter (Triamterene/Hydrochloroth) 1 Cap Cap, 1 CAP PO DAILY for EDEMA, CAP 06/06/24 Apixaban Base (ELIQUIS) 5 Mg Tab, 5 MG PO BID, TAB 06/06/24 Carbamazepine (Tegretol) 200 Mg Tab, 200 MG PO HS, TAB 06/06/24 Alirocumab (Praluent) 75 Mg/Ml Inj, 75 MG SC every other week, INJ 06/06/24 Ivabradine Hydrochloride (Corlanor) 5 Mg Tab, 5 MG PO BID for HF, TAB 06/06/24 Fluticasone-Salmeterol (Advair Diskus 250/50) 1 Puff Ih, 1 PUFF INH BID for COPD, #3 INHALER 3 Refills 06/06/24 Metoprolol Succinate (Metoprolol Succinate Er) 100 Mg Tab, 100 MG PO BID for HTN, TAB 05/12/24 Pregabalin (Lyrica) 100 Mg Cap, 1 CAP PO BID for NERVE PAIN, #60 CAP 2 Refills 05/12/24 Clopidogrel Bisulfate (CLOPIDOGREL) 75 Mg Tab, 75 MG PO DAILY for S/P DVT for 30 Days, MG 05/12/24 Tramadol Hcl (Tramadol Hcl) 50 Mg Tab, 50 MG PO BID, MG 07/30/19 Flecainide Acetate (Flecainide Acetate) 100 Mg Tab, 100 MG PO Q12HR for A. FIB for 30 Days, MG 07/30/19 Furosemide (Lasix) 20 Mg Tb, 40 MG PO DAILY for EDEMA, TAB 07/30/19 Potassium Chloride (Klor-Con 8) 8 Meq Tab, 8 MEQ PO DAILY for SUPPLEMENT, TAB 07/30/19 Lidocaine (LIDODERM 5% TOPICAL PATCH) 1 Patch Ph, 1 PATCH TOP DAILY, #30 PATCH 1 Refill 07/30/19 Lorazepam (Ativan) 1 Mg Tab, 1 MG PO TIDP PRN for ANXIETY, TAB 07/30/19 Magnesium Oxide (MAGNESIUM OXIDE) 400 Mg Tab, 1 TAB PO BID, #30 TAB 5 Refills 03/20/18 Dapagliflozin Propanediol (Farxiga) 10 Mg Tab, 10 MG PO DAILY for HF, TAB 11/16/16 Levetiracetam (Keppra) 1,000 Mg Tab, 1250 MG PO BID for SEIZURES, TAB 06/22/15 Nitroglycerin (Nitroglycerin) 0.4 Mg Sl, 1 TAB SL Q5MIN PRN for FOR CHEST PAIN 04/26/10 Information Source: Patient Mode of Arrival: Ambulatory Severity: Moderate Timing: Hours Duration: Minutes Prehospital treatment: None Associated Signs and Symptoms: Syncope Past Medical History PAST MEDICAL HISTORY: AFIB, Angina, CAD, CHF, CKF, COPD, High Lipids, HTN, Seizures Past Medical History (Other): History of polycythemia vera Surgical History: Pacemaker Family History Family History: Reviewed,noncontributory to illness, No family hx of Heart carol, No family hx of HTN Social History Smoker: Non-Smoker Alcohol: Denies ETOH Use Drugs: Denies Drug Use Lives In: Home Constitutional: denies: chills, diaphoresis, fatigue, fever, malaise, sweats, weakness, others EENTM: denies: blurred vision, double vision, ear bleeding, ear discharge, ear drainage, ear pain, ear ringing, eye pain, eye redness, hearing loss, mouth pain, mouth swelling, nasal discharge, nose bleeding, nose congestion, nose pain, photophobia, tearing, throat pain, throat swelling, voice changes, others Respiratory: denies: cough, hemoptysis, orthopnea, SOB at rest, shortness of breath, SOB with excertion, stridor, wheezing, others Cardiovascular: reports: syncope; denies: chest pain, dizzy spells, diaphoresis, Dyspnea on exertion, edema, irregular heart beat, left arm pain, lightheadedness, palpitations, PND, others Gastrointestinal: denies: abdomen distended, abdominal pain, blood streaked bowels, constipated, diarrhea, dysphagia, difficulty swallowing, hematemesis, melena, nausea, poor appetite, poor fluid intake, rectal bleeding, rectal pain, vomiting, others Genitourinary: denies: burning, dysuria, flank pain, frequency, hematuria, incontinence, penile discharge, penile sore, pain, testicle pain, testicle swelling, urgency, others Neurological: reports: fainting; denies: dizziness, headache, left sided numbness, left sided weakness, numbness, paresthesia, pre-existing deficit, right sided numbness, right sided weakness, seizure, speech problems, tingling, tremors, weakness, others Musculoskeletal: denies: back pain, gout, joint pain, joint swelling, muscle pain, muscle stiffness, neck pain, others Integumetry: denies: bruises, change in color, change in hair/nails, dryness, laceration, lesions, lumps, rash, wounds, others Allergic/Immunocompromised: denies: Difficulty Healing, Frequent Infections, Hives, Itching, others Hematologic/Lymphatic: denies: anemia, blood clots, easy bleeding, easy bruising, swollen glands, others Endocrine: denies: excessive hunger, excessive sweating, excessive thirst, excessive urination, flushing, intolerance to cold, intolerance to heat, unexplained weight gain, unexplained weight loss, others Psychiatric: denies: anxiety, bipolar disorder, depression, hopeless, panic disorder, schizophrenia, sleepless, suicidal, others All Other Systems: Reviewed and Negative Physical Exam General Appearance: No Apparent Distress (Patient states no lingering effects and states he feels healthy and stable), Normal HEENT: Normal ENT Inspection, Pharynx Normal, TMs Normal Neck: Full Range of Motion, Non-Tender, Normal, Normal Inspection Respiratory: Chest Non-Tender, Lungs Clear, No Accessory Muscle Use, No Respiratory Distress, Normal Breath Sounds Cardiovascular: No Edema, No JVD, No Murmur, No Gallop, Normal Peripheral Pulses, Regular Rate/Rhythm Breast Exam: Deferred Gastrointestinal: No Organomegaly, Non Tender, No Pulsatile Mass, Normal Bowel Sounds, Soft Genitalia: Deferred Pelvic: Deferred Rectal: Deferred Extremities: No calf tenderness, Normal capillary refill, Normal inspection, Normal range of motion, Non-tender, No pedal edema Neurologic: Alert, No Motor Deficits, Normal Affect, Normal Mood, No Sensory Deficits Cerebellar Function: Normal Reflexes: Normal Skin: Dry, Normal Color, Warm Lymphatic: No Adenopathy Was a procedure done? Was a procedure done?: No CP Differential Dx Differential Diagnosis: A-fib, Anxiety / Panic Attack, Atrial Dysrhythmia, AV Block 1st Degree, WA, Other (Vasovagal) X-Ray, Labs, Meds, VS Vital Signs Date Time Temp Pulse Resp B/P (MAP) Pulse Ox O2 Delivery O2 Flow Rate FiO2 03/02/25 15:27 76 03/02/25 15:24 98.4 72 18 114/84 (94) 95 98.4 Lab Test 03/02/25 15:42 Range/Units White Blood Count 11.1 H 4.4-10.8 10^3/uL Red Blood Count 7.40 H 4.5-5.90 10^6/uL Hemoglobin 14.7 13.5-17.5 g/dL Hematocrit 47.4 41.0-53.0 % Mean Corpuscular Volume 64.1 L 80.0-100.0 fL Mean Corpuscular Hemoglobin 19.8 L 28.0-32.0 pg Mean Corpuscular Hemoglobin Concent 30.9 L 32.0-36.0 g/dL Red Cell Distribution Width 18.2 H 11.8-14.3 % Platelet Count 233 140-450 10^3/uL Mean Platelet Volume 9.0 6.9-10.8 fL Neutrophils (%) (Auto) 73.2 37.0-80.0 % Lymphocytes (%) (Auto) 16.3 10.0-50.0 % Monocytes (%) (Auto) 8.9 0.0-12.0 % Eosinophils (%) (Auto) 0.7 0.0-7.0 % Basophils (%) (Auto) 0.9 0.0-2.0 % Neutrophils # (Auto) 8.2 1.6-8.6 10 ^3/uL Lymphocytes # (Auto) 1.8 0.4-5.4 10 ^3/uL Monocytes # (Auto) 1.0 0-1.3 10 ^3/uL Eosinophils # (Auto) 0.1 0-0.8 10 ^3/uL Basophils # (Auto) 0.1 0-0.2 10 ^3/uL Nucleated Red Blood Cells 0.1 % Sodium Level 142 136-145 mmol/L Potassium Level 4.0 3.5-5.1 mmol/L Chloride Level 106 98-107 mmol/L Carbon Dioxide Level 26 20-31 mmol/L Anion Gap 10 5-15 Blood Urea Nitrogen 10 9-23 mg/dL Creatinine 1.28 0.700-1.30 mg/dL Glomerular Filtration Rate Calc 65 >90 mL/min BUN/Creatinine Ratio 7.8 L 10.0-20.0 Serum Glucose 94 74-106 mg/dL Calcium Level 9.8 8.7-10.4 mg/dL Total Bilirubin 0.7 0.2-1.0 mg/dL Aspartate Amino Transferase (AST) 19 <34 U/L Alanine Aminotransferase (ALT) 16 7-40 U/L Alkaline Phosphatase 126 H 46-116 U/L Troponin I High Sensitivity < 3 L </=54 ng/L B-Type Natriuretic Peptide 5.10 0-100 pg/mL Total Protein 7.1 5.7-8.2 g/dL Albumin 4.5 3.2-4.8 g/dL X-Ray, Labs, Meds, VS Comment All studies performed the ED were evaluated by me personally. Laboratories were unremarkable for any systemic process. EKG revealed a atrial paced rhythm with a rate of 76. Borderline left axis deviation. Low voltage in the precordial leads as well as abnormal inferior Q-waves. AL interval of 199 and QT interval of 370. Patient receives regular medical evaluation through his primary care provider and [facility]. Advised patient that it sounds like he had a vasovagal event due to heat and standing. Advised good hydration and healthy nutrition moving forward as well as always maintaining his appointments with his primary care provider and [facility]. Time of 1ST Reevaluation: 16:34 Reevaluation 1ST: Unchanged Consultation: PCP, Cardiology Patient Education/Counseling: Diagnosis, Treatment Family Education/Counseling: Diagnosis, Treatment, No Family Present SEPSIS Sepsis Screen Recent Procedure: No On Antibiotic Therapy: No Respiratory Rate >20: No Heart Rate >90: No Temp<36 C (96.8 F) or >38.3 C: No SBP <90 or MAP <65 mmHG: No New Acute Mental Status Change: No Is the patient on CPAP, BIPAP,: No Physician Orders Electrocardigram (03/02/25 15:25) Vital Signs Date Time Temp Pulse Resp B/P (MAP) Pulse Ox O2 Delivery O2 Flow Rate FiO2 03/02/25 15:27 76 03/02/25 15:24 98.4 72 18 114/84 (94) 95 98.4 Laboratory Tests Test 03/02/25 15:42 White Blood Count 11.1 10^3/uL (4.4-10.8) H Departure 1 Departure Time of Disposition: 16:35 Impression: Primary Impression: Vasovagal episode Disposition: HOME / SELF CARE / HOMELESS Condition: Stable Additional Instructions: Advised good hydration and healthy nutrition for the next few days. Patient should maintain all follow up appointments with the primary care provider as well as [facility]. Patient should contact his primary care provider on Tuesday for discussions related to today's visit. Discharged With: Self, Friend Critical Care Note Critical Care Time?: No Stability Stability form required: No Heart Score Heart Score: Heart Score Response (Comments) Value History Moderate Suspicious 1 EKG Normal 0 Age 45-64 1 Risk Factors 1 or 2 risk factors 1 Troponin Normal limit 0 Total 3 I personally scribed for TEA MURRELL MD ([email or web address]) on 03/02/25 at 15:31. Electronically submitted by Adalid Everett ([email or web address]). TEA MURRELL MD Mar 02, 2025 15:31 BRIGIDA MARQUEZ Mar 02, 2025 16:36
[2025-03-02 15:55] LABS: Basophils # (auto) 0.1 10 ^3/uL (0-0.2); Basophils % (auto) 0.9 % (0.0-2.0); Eosinophils # (auto) 0.1 10 ^3/uL (0-0.8); Eosinophils % (auto) 0.7 % (0.0-7.0); Hematocrit 47.4 % (41.0-53.0); Hemoglobin 14.7 g/dL (13.5-17.5); Lymphocytes # (auto) 1.8 10 ^3/uL (0.4-5.4); Lymphocytes % (auto) 16.3 % (10.0-50.0); Mean Corpuscular Hemoglobin 19.8 pg (28.0-32.0); Mean Corpuscular Hgb Conc. 30.9 g/dL (32.0-36.0); Mean Corpuscular Volume 64.1 fL (80.0-100.0); Monocytes % (auto) 8.9 % (0.0-12.0); Neutrophils # (auto) 8.2 10 ^3/uL (1.6-8.6); Neutrophils % (auto) 73.2 % (37.0-80.0); Nucleated Red Blood Cells % 0.1 %; Platelet Count (auto) 233 10^3/uL (140-450); Red Cell Distribution Width 18.2 % (11.8-14.3); White Blood Cell 11.1 10^3/uL (4.4-10.8)
[2025-03-02 16:14] LABS: Alanine Aminotransferase 16 U/L (7-40); Anion Gap 10 (5-15); Aspartate Aminotransferase 19 U/L (<34); Blood Urea Nitrogen 10 mg/dL (9-23); Calcium 9.8 mg/dL (8.7-10.4); Carbon Dioxide 26 mmol/L (20-31); Chloride 106 mmol/L (98-107); Glucose 94 mg/dL (74-106); Sodium 142 mmol/L (136-145); Total Protein 7.1 g/dL (5.7-8.2)
[2025-03-02 16:15] LABS: Albumin 4.5 g/dL (3.2-4.8); BUN/Creatinine Ratio 7.8 (10.0-20.0); Bilirubin, Total 0.7 mg/dL (0.2-1.0)
[2025-03-02 16:22] LABS: Alkaline Phosphatase 126 U/L (46-116)
--- NOTE | 2025-03-04 10:25 | ECG ---
[facility] Test Date: 2025-03-02 Test Time: 15:27:07 Pat Name: PORFIRIO HERRERA Department: ER Room: Gender: M Drainman: KIKO : 1965 Requested By: BRIGIDA MARQUEZ Order Number: [id number] Reading MD: Emil Mcgrath Measurements Intervals [place] Rate: 76 P: 0 HI: 199 QRS: -20 QRSD: 97 T: 35 QT: 370 QTc: 417 Interpretive Statements Atrial-paced rhythm Borderline left axis deviation Low voltage, precordial leads Abnormal inferior Q waves Electronically Signed On 03-05-2025 22:43:26 PDT by Emil Mcgrath Please click the below link to view image of tracing.
== END 2025-03-02 20:46 | disposition home or self-care (01) ==
LOC: ER 14:53
DX: R55 Syncope and collapse (principal); D45 Polycythemia vera; I13.0 Hypertensive heart and chronic kidney disease with heart failure and stage 1 through stage 4 chronic kidney disease, or unspecified chronic kidney disease; N18.9 Chronic kidney disease, unspecified; I50.9 Heart failure, unspecified; I25.10 Atherosclerotic heart disease of native coronary artery without angina pectoris; I48.91 Unspecified atrial fibrillation; J44.9 Chronic obstructive pulmonary disease, unspecified; Z79.84 Long term (current) use of oral hypoglycemic drugs; Z79.899 Other long term (current) drug therapy; Z95.0 Presence of cardiac pacemaker; Z88.1 Allergy status to other antibiotic agents; Z88.5 Allergy status to narcotic agent
CPT/HCPCS: 36415; 80053; 83880; 84484; 85025; 93005

== ENCOUNTER 2025-03-26 11:25 | Outpatient (CLI) | payer MEDICARE, MEDICAID ==
[2025-03-26 11:30] VITALS: BP 159/90; PULSE 92; RESP 16; O2SAT 96
[2025-03-26] MEDS: BACITRACIN TOP OINT 1 UD PKG TOP ONE ×2 (11:35)
== END 2025-03-26 17:00 | disposition home or self-care (01) ==
LOC: CHF HDHVI 11:25
PROVIDERS: ATTEND Internal Medicine Cardiovascular Disease
DX: S00.81XA Abrasion of other part of head, initial encounter (principal); X58.XXXA Exposure to other specified factors, initial encounter; Y93.89 Activity, other specified; Y92.89 Other specified places as the place of occurrence of the external cause; Y99.8 Other external cause status
CPT/HCPCS: G0463

== ENCOUNTER 2025-03-29 11:01 | Outpatient (CLI) | payer MEDICARE, MEDICAID ==
[2025-03-29 11:00] VITALS: BP 133/99; PULSE 76; RESP 18; O2SAT 97
[2025-03-29] MEDS: MULTIPLE VIT 10 ML IV ONE (11:07)
[2025-03-29] MEDS: CYANOCOBALAMIN (B-12) 1000 MCG/1 ML VIAL ONE (11:09)
[2025-03-29] MEDS: MVI in SODIUM CHLORIDE 0.9% 500 ML IVB ONE (11:11)
[2025-03-29] MEDS: CYANOCOBALAMIN (B-12) 1000 MCG/1 ML VIAL IM ONE (11:27)
[2025-03-29 13:34] VITALS: BP 140/101
== END 2025-03-29 17:00 | disposition home or self-care (01) ==
LOC: CHF HDHVI 11:01
PROVIDERS: ATTEND Internal Medicine Cardiovascular Disease
DX: E86.0 Dehydration (principal); D64.9 Anemia, unspecified; R53.83 Other fatigue; I13.0 Hypertensive heart and chronic kidney disease with heart failure and stage 1 through stage 4 chronic kidney disease, or unspecified chronic kidney disease; E11.22 Type 2 diabetes mellitus with diabetic chronic kidney disease; I50.43 Acute on chronic combined systolic (congestive) and diastolic (congestive) heart failure; N18.9 Chronic kidney disease, unspecified; E11.42 Type 2 diabetes mellitus with diabetic polyneuropathy; I25.10 Atherosclerotic heart disease of native coronary artery without angina pectoris; J44.9 Chronic obstructive pulmonary disease, unspecified; D45 Polycythemia vera; E78.5 Hyperlipidemia, unspecified; I25.2 Old myocardial infarction; I48.0 Paroxysmal atrial fibrillation; Z79.84 Long term (current) use of oral hypoglycemic drugs; Z79.899 Other long term (current) drug therapy; Z95.0 Presence of cardiac pacemaker; Z88.1 Allergy status to other antibiotic agents; Z88.5 Allergy status to narcotic agent
CPT/HCPCS: 96365; 96366; 96372; G0463; J3411; J3420; J3475; J7040; 96360; 96361

== ENCOUNTER 2025-04-09 07:55 | Outpatient (CLI) | payer MEDICARE, MEDICAID | END 2025-04-09 17:00 | disposition home or self-care (01) | LOC: Rad HDHVI 07:55 | PROVIDERS: ATTEND Internal Medicine Cardiovascular Disease | DX: I08.8 Other rheumatic multiple valve diseases (principal); I11.0 Hypertensive heart disease with heart failure; I50.23 Acute on chronic systolic (congestive) heart failure | CPT/HCPCS: 93306 ==

== ENCOUNTER 2025-05-31 08:54 | Outpatient (CLI) | payer MEDICARE, MEDICAID ==
[2025-05-31 08:58] VITALS: BP 124/88; PULSE 85; RESP 16; O2SAT 97
[2025-05-31] MEDS: MULTIPLE VIT 10 ML IV ONE (09:08)
[2025-05-31] MEDS: CYANOCOBALAMIN (B-12) 1000 MCG/1 ML VIAL ONE (09:12)
[2025-05-31] MEDS: ONDANSETRON HCL 4 MG/2 ML VIAL ONE (09:12)
[2025-05-31] MEDS: ONDANSETRON HCL 4 MG/2 ML VIAL IV ONE (09:13)
[2025-05-31] MEDS: MVI in SODIUM CHLORIDE 0.9% 500 ML IVB ONE (09:14)
[2025-05-31] MEDS: CYANOCOBALAMIN (B-12) 1000 MCG/1 ML VIAL IM ONE (09:50)
[2025-05-31 11:34] VITALS: BP 124/82; PULSE 67; RESP 16; O2SAT 97
== END 2025-05-31 17:00 | disposition home or self-care (01) ==
LOC: CHF HDHVI 08:54
PROVIDERS: ATTEND Internal Medicine Cardiovascular Disease
DX: E86.0 Dehydration (principal); D51.3 Other dietary vitamin B12 deficiency anemia; R53.83 Other fatigue; R11.0 Nausea; I13.0 Hypertensive heart and chronic kidney disease with heart failure and stage 1 through stage 4 chronic kidney disease, or unspecified chronic kidney disease; E11.22 Type 2 diabetes mellitus with diabetic chronic kidney disease; I50.43 Acute on chronic combined systolic (congestive) and diastolic (congestive) heart failure; N18.9 Chronic kidney disease, unspecified; I25.10 Atherosclerotic heart disease of native coronary artery without angina pectoris; I25.2 Old myocardial infarction; I48.0 Paroxysmal atrial fibrillation; J44.9 Chronic obstructive pulmonary disease, unspecified; E78.5 Hyperlipidemia, unspecified; Z79.84 Long term (current) use of oral hypoglycemic drugs; Z79.899 Other long term (current) drug therapy; Z95.0 Presence of cardiac pacemaker
CPT/HCPCS: 96365; 96366; 96372; 96375; G0463; J2405; J3411; J3420; J3475; J7040; 96360; 96361

== ENCOUNTER → 2025-07-03 | Outpatient (CLI) | payer MEDICARE, MEDICAID | END | disposition home or self-care (01) | LOC: Rad HDHVI 08:58 | PROVIDERS: ATTEND Internal Medicine Cardiovascular Disease | DX: R60.0 Localized edema (principal) | CPT/HCPCS: 93971 ==

== ENCOUNTER 2025-07-30 08:24 | Outpatient (CLI) | payer MEDICARE, MEDICAID ==
[~2025-07-30] VITALS: Ht 182.9 cm; Wt 95.3 kg
[2025-07-30] MEDS ORDERED: ADENOSINE 90 MG/30 ML INJ IV ONE (08:47)
[2025-07-30] MEDS ORDERED: ADENOSINE 80 MG in GIVE UN-DILUTED 0 ML IV ONE (11:15)
== END 2025-07-30 17:00 | disposition home or self-care (01) ==
LOC: Rad HDHVI 08:24
PROVIDERS: ATTEND Internal Medicine Cardiovascular Disease
DX: I44.0 Atrioventricular block, first degree (principal); R07.89 Other chest pain; R06.02 Shortness of breath; I25.118 Atherosclerotic heart disease of native coronary artery with other forms of angina pectoris; I11.0 Hypertensive heart disease with heart failure; I50.43 Acute on chronic combined systolic (congestive) and diastolic (congestive) heart failure; E11.9 Type 2 diabetes mellitus without complications; I49.5 Sick sinus syndrome; E78.00 Pure hypercholesterolemia, unspecified; J40 Bronchitis, not specified as acute or chronic; J44.89 Other specified chronic obstructive pulmonary disease; Z95.0 Presence of cardiac pacemaker; Z82.49 Family history of ischemic heart disease and other diseases of the circulatory system
CPT/HCPCS: 78452; 93017; A9500; J0153